=== PATIENT | male | born 1935 | race Caucasian/White ===

== ENCOUNTER 2016-10-07 18:24 | Inpatient (IN) | payer MEDICARE, OTHER ==
[~2016-10-07] VITALS: Ht 172.7 cm; Wt 78.7 kg
--- NOTE | 2016-10-07 18:52 | RAD ---
PROCEDURE CT head without contrast. HISTORY Mental status change while eating dinner. Poor historian. Code stroke. TECHNIQUE Noncontrast CT head was obtained. One or more of the following individualized dose reduction techniques were utilized for this exam: 1. Automated exposure control. 2. Adjustment of the mA and/or kV according to patient's size. 3. Use of iterative reconstruction technique. COMPARISON None. FINDINGS There is prominence of the ventricles and sulci, symmetric. There is minimal probable small-vessel ischemic disease. There is no acute intracranial hemorrhage or extra-axial fluid collection. There is no mass effect or midline shift. Jacob-white differentiation is preserved. There is no depressed skull fracture. Paranasal sinuses and mastoid air cells are clear. This critical result was called to Dr. Veloz at 1850 hours. IMPRESSION 1. No evidence of an acute infarct. 2. Brain parenchymal volume loss and minimal probable small-vessel ischemic disease. Electronically signed by: Fer Win MD (Oct 07, 2016 18:51:24)
[2016-10-07 19:46] LABS: BILIRUBIN,URINE NEGATIVE (NEG); GLUCOSE,URINE NEGATIVE (NEG); NITRITE,URINE NEGATIVE (NEG); PROTEIN,URINE NEGATIVE (NEG-TRACE)
[2016-10-07 19:47] LABS: BASO % 0 % (0-3); EOS % 2 % (0-3); HEMATOCRIT 38.8 % (39.0-53.0); HEMOGLOBIN 12.6 g/dL (13.0-17.5); LYMPH # 1.4 x10^3/uL (1.0-4.8); LYMPH % 13 % (24-48); MEAN CORPUSCULAR HEMOGLOBIN 33 pg (25-35); MEAN CORPUSCULAR HGB CONC 33 g/dL (31-37); MEAN CORPUSCULAR VOLUME 102 fL (79-100); MONO % 13 % (0-9); NEUT % 72 % (31-73); PLATELET COUNT 204 x10^3/uL (140-400); RED BLOOD COUNT 3.81 x10^6/uL (4.30-5.70); RED CELL DISTRIBUTION WIDTH 13.7 % (11.5-14.5); WHITE BLOOD COUNT 10.3 x10^3/uL (4.0-11.0)
[2016-10-07 19:51] LABS: BACTERIA,URINE 0 /HPF (0-FEW); RBC,URINE 0 /HPF (0-2); SQUAMOUS EPITHELIAL CELL,UR FEW /LPF
[2016-10-07 19:54] LABS: INR 1.1 (0.8-1.1); PROTHROMBIN TIME PATIENT 13.1 SEC (11.7-14.0)
--- NOTE | 2016-10-07 19:55 | PHYS DOC ---
Past Medical History Past Medical History: CHF, COPD, Dementia, Hypertension Past Surgical History: No Surgical History Alcohol Use: None Drug Use: None Adult General Chief Complaint Chief Complaint: NEURO SYMPTOMS/DEFICITS [facility] HPI Patient is a 80 year old male who presents by EMS for altered mental status. Per RN phone report from [place], it was noted when he was at dinner that he had slurred speech and could not sit up on his own. This is abnormal for him. Unknown last normal time. The patient only complains of general body tingling sensation. He otherwise denies headache, vision changes, dizziness, numbness, weakness, chest pain, palpitations, dyspnea, abdominal pain, nausea or vomiting , fever or chills, fall, injury, neck pain or manipulation. Review of Systems Review of Systems Constitutional: Denies fever or chills [] Eyes: Denies change in visual acuity, redness, or eye pain [] HENT: Denies nasal congestion or sore throat [] Respiratory: Denies cough or shortness of breath [] Cardiovascular: No additional information not addressed in HPI [] GI: Denies abdominal pain, nausea, vomiting, bloody stools or diarrhea [] : Denies dysuria or hematuria [] Musculoskeletal: Denies back pain or joint pain [] Integument: Denies rash or skin lesions [] Neurologic: Denies headache, focal weakness or sensory changes [] Endocrine: Denies polyuria or polydipsia [] Allergies Allergies Allergies Coded Allergies Type Severity Reaction Last Updated Verified Penicillins Allergy Intermediate 10/07/16 Yes Physical Exam Physical Exam Constitutional: Well developed, well nourished, no acute distress, non-toxic appearance. [] HENT: Normocephalic, atraumatic, bilateral external ears normal, oropharynx moist, no oral exudates, nose normal. [] Eyes: PERRLA, EOMI, conjunctiva normal, no discharge. [] Neck: Normal range of motion, no tenderness, supple, no stridor. [] Cardiovascular:Heart rate regular rhythm [] Lungs & Thorax: Bilateral breath sounds clear to auscultation [] Abdomen: Bowel sounds normal, soft, no tenderness. [] Skin: Warm, dry, no erythema, no rash. [] Back: No tenderness, no CVA tenderness. [] Extremities: No tenderness, ROM intact, bilateral 1+ LE edema. [] Neurologic: Alert and oriented to self and situation, normal motor function, normal sensory function, no focal deficits noted, cranial nerves II through XII intact, no extremity drift, no past pointing. [] Psychologic: Affect normal, judgement normal, mood normal. [] Current Patient Data Vital Signs Vital Signs Date Time Temp Pulse Resp B/P Pulse Ox O2 Delivery O2 Flow Rate FiO2 10/07/16 19:26 98.6 82 18 130/59 92 Room Air 98.6 Lab Values Laboratory Tests Test 10/07/16 19:38 White Blood Count 10.3x10^3/uL (4.0-11.0) Red Blood Count 3.81x10^6/uL (4.30-5.70) L Hemoglobin 12.6g/dL (13.0-17.5) L Hematocrit 38.8% (39.0-53.0) L Mean Corpuscular Volume 102fL (79-100) H Mean Corpuscular Hemoglobin 33pg (25-35) Mean Corpuscular Hemoglobin Concent 33g/dL (31-37) Red Cell Distribution Width 13.7% (11.5-14.5) Platelet Count 204x10^3/uL (140-400) Neutrophils (%) (Auto) 72% (31-73) Lymphocytes (%) (Auto) 13% (24-48) L Monocytes (%) (Auto) 13% (0-9) H Eosinophils (%) (Auto) 2% (0-3) Basophils (%) (Auto) 0% (0-3) Neutrophils # (Auto) 7.5x10^3uL (1.8-7.7) Lymphocytes # (Auto) 1.4x10^3/uL (1.0-4.8) Monocytes # (Auto) 1.3x10^3/uL (0.0-1.1) H Eosinophils # (Auto) 0.2x10^3/uL (0.0-0.7) Basophils # (Auto) 0.0x10^3/uL (0.0-0.2) Prothrombin Time 13.1SEC (11.7-14.0) Prothrombin Time INR 1.1 (0.8-1.1) PTT 24SEC (24-38) Urine Collection Type Unknown Urine Color Yellow Urine Clarity Clear Urine pH 5.0 Urine Specific [place] 1.015 Urine Protein Negativemg/dL (NEG-TRACE) Urine Glucose (UA) Negativemg/dL (NEG) Urine Ketones (Stick) Negativemg/dL (NEG) Urine Blood Negative (NEG) Urine Nitrite Negative (NEG) Urine Bilirubin Negative (NEG) Urine Urobilinogen Dipstick 1.0mg/dL (0.2 mg/dL) Urine Leukocyte Esterase Trace (NEG) Urine RBC 0/HPF (0-2) Urine WBC 1-4/HPF (0-4) Urine Squamous Epithelial Cells Few/LPF Urine Bacteria 0/HPF (0-FEW) Urine Mucus Mod/LPF Sodium Level 147mmol/L (136-145) H Potassium Level 4.4mmol/L (3.5-5.1) Chloride Level 105mmol/L (98-107) Carbon Dioxide Level 36mmol/L (21-32) H Anion Gap 6 (6-14) Blood Urea Nitrogen 16mg/dL (8-26) Creatinine 1.0mg/dL (0.7-1.3) Estimated GFR (Cockcroft-Gault) 71.9 Glucose Level 100mg/dL (70-99) H Calcium Level 9.3mg/dL (8.5-10.1) Creatine Kinase 384U/L (39-308) H Troponin I Quantitative 0.082ng/mL (0.000-0.055) Laboratory Tests 10/07/16 19:38 Laboratory Tests 10/07/16 19:38 EKG EKG EKG as interpreted by me as sinus rhythm with right bundle branch block, rate 65 , no ST-T changes, normal intervals, no ectopy Radiology/Procedures Radiology/Procedures Chest xray as interpreted by me with no acute cardiopulmonary disease process Head CT without contrast IMPRESSION 1. No evidence of an acute infarct. 2. Brain parenchymal volume loss and minimal probable small-vessel ischemic disease. Electronically signed by: Fer Win MD (Oct 07, 2016 18:51:24) Course & Med Decision Making Course & Med Decision Making Pertinent Labs and Imaging studies reviewed. (See chart for details) Workup reveals small elevation in troponin, but is otherwise nonacute. He has no objective signs of neurologic deficit at this time; history is suspicious for TIA. He is not a candidate for thrombolysis as his weakness and slurred speech have resolved upon presentation here. Discussed case with Dr. Castle, who will admit. Cardiology and Neurology consults placed. Damari Disclaimer Dragon Disclaimer This electronic medical record was generated, in whole or in part, using a voice recognition dictation system. Departure Departure Impression: Primary Impression: Altered mental status Additional Impression: Elevated troponin Disposition: ADMITTED INPATIENT Condition: STABLE Referrals: HOMA BEVERLY MD (PCP) Problem Qualifiers Primary Impression: Altered mental status Altered mental status type: transient alteration of awareness Qualified Code : R40.4 - Transient alteration of awareness Kathleen OMALLEY MD Oct 07, 2016 19:55
[2016-10-07 19:59] LABS: CALCIUM 9.3 mg/dL (8.5-10.1); GFR 71.9; POTASSIUM 4.4 mmol/L (3.5-5.1)
[2016-10-07] MEDS ORDERED: ACETAMINOPHEN 325 MG TABLET. PO PRN ×2 (20:30→21:00)
[2016-10-07] MEDS ORDERED: ONDANSETRON PF 4 MG/2 ML VIAL. IV PRN ×2 (20:30→21:00)
[2016-10-07] MEDS ORDERED: FENTANYL PF 100 MCG/2 ML VIAL. IV PRN (20:30)
--- NOTE | 2016-10-07 21:05 | PDOC1 ---
History and Physical Date of Admission Date of Admission 10/07/16 Identification/Chief Complaint Chief Complaint ams Problems: Source Source: Chart review, Patient History of Present Illness History of Present Illness HPI HPI Patient is a 80 year old male, dementia, [facility], who presents by EMS for altered mental status. Pt is a very poor historian, closing his eyes when i talked to him in ER, answer my questions by only "feels good", cannot tell me where he is or what happened. As per ERP, Per RN phone report from [place], it was noted when he was at dinner that he had slurred speech and could not sit up on his own. This is abnormal for him. Unknown last normal time. The patient only complains of general body tingling sensation. He otherwise denies headache, vision changes, dizziness, numbness, weakness, chest pain, palpitations, dyspnea, abdominal pain, nausea or vomiting, fever or chills, fall, injury, neck pain or manipulation. IN ER, Was found high troponin. dont know pt's baseline. Past Medical History Past Medical History CHF, COPD, Dementia, Hypertension Past Surgical History Past Surgical History: No pertinent history Family History Family History: No Significant Social History Smoke: No ALCOHOL: none Drugs: None Current Problem List Problem List Problems Medical Problems: (1) Altered mental status Status: Acute (2) Elevated troponin Status: Acute Current Medications Current Medications Current Medications Medications (Trade) Dose Ordered Sig/Yanet Start Time Stop Time Status Last Admin Dose Admin Acetaminophen (Tylenol) 650 mg PRN Q4HRS PRN 10/07/16 20:30 10/08/16 20:29 Fentanyl Citrate (Fentanyl 2ml Vial) 25 mcg PRN Q2HR PRN 10/07/16 20:30 10/08/16 20:29 Ondansetron HCl (Zofran) 4 mg PRN Q8HRS PRN 10/07/16 20:30 10/08/16 20:29 Allergies Allergies Allergies Coded Allergies Type Severity Reaction Last Updated Verified Penicillins Allergy Intermediate 10/07/16 Yes ROS Review of System CONSTITUTIONAL: No fever or chills EYES: No recent changes SKIN: No rash or itching CARDIOVASCULAR: No chest pain, syncope, palpitations, or edema RESPIRATORY: No SOB or cough GASTROINTESTINAL: No nausea, vomiting or abdominal pain NEUROLOGICAL: No headaches or weakness ENDOCRINE: No cold or heat intolerance GENITOURINARY: No urgency or frequency of urination MUSCULOSKELETAL: No back pain or joint pain LYMPHATICS: No enlarged lymph nodes PSYCHIATRIC: No anxiety or depression Physical Exam Physical Exam GEN.: No apparent distress. Alert and orientedx1 to person only, looks comfortable, follow my commands by squeezing my hands. HEENT: Head is normocephalic, atraumatic NECK: Supple. LUNGS: Clear to auscultation. HEART: RRR, S1, S2 present. Peripheral pulses intact ABDOMEN: Soft, nontender. Positive bowel sounds. EXTREMITIES: Without any cyanosis. NEUROLOGIC: Normal speech, normal tone PSYCHIATRIC: Normal affect, normal mood. SKIN: No ulcerations Vitals Vitals Vital Signs Date Time Temp Pulse Resp B/P Pulse Ox O2 Delivery O2 Flow Rate FiO2 10/07/16 19:26 98.6 82 18 130/59 92 Room Air 98.6 Labs Labs Laboratory Tests Test 10/07/16 19:38 White Blood Count 10.3x10^3/uL (4.0-11.0) Red Blood Count 3.81x10^6/uL (4.30-5.70) Hemoglobin 12.6g/dL (13.0-17.5) Hematocrit 38.8% (39.0-53.0) Mean Corpuscular Volume 102fL (79-100) Mean Corpuscular Hemoglobin 33pg (25-35) Mean Corpuscular Hemoglobin Concent 33g/dL (31-37) Red Cell Distribution Width 13.7% (11.5-14.5) Platelet Count 204x10^3/uL (140-400) Neutrophils (%) (Auto) 72% (31-73) Lymphocytes (%) (Auto) 13% (24-48) Monocytes (%) (Auto) 13% (0-9) Eosinophils (%) (Auto) 2% (0-3) Basophils (%) (Auto) 0% (0-3) Neutrophils # (Auto) 7.5x10^3uL (1.8-7.7) Lymphocytes # (Auto) 1.4x10^3/uL (1.0-4.8) Monocytes # (Auto) 1.3x10^3/uL (0.0-1.1) Eosinophils # (Auto) 0.2x10^3/uL (0.0-0.7) Basophils # (Auto) 0.0x10^3/uL (0.0-0.2) Prothrombin Time 13.1SEC (11.7-14.0) Prothromb Time International Ratio 1.1 (0.8-1.1) Activated Partial Thromboplast Time 24SEC (24-38) Urine Collection Type Unknown Urine Color Yellow Urine Clarity Clear Urine pH 5.0 Urine Specific [place] 1.015 Urine Protein Negativemg/dL (NEG-TRACE) Urine Glucose (UA) Negativemg/dL (NEG) Urine Ketones (Stick) Negativemg/dL (NEG) Urine Blood Negative (NEG) Urine Nitrite Negative (NEG) Urine Bilirubin Negative (NEG) Urine Urobilinogen Dipstick 1.0mg/dL (0.2 mg/dL) Urine Leukocyte Esterase Trace (NEG) Urine RBC 0/HPF (0-2) Urine WBC 1-4/HPF (0-4) Urine Squamous Epithelial Cells Few/LPF Urine Bacteria 0/HPF (0-FEW) Urine Mucus Mod/LPF Sodium Level 147mmol/L (136-145) Potassium Level 4.4mmol/L (3.5-5.1) Chloride Level 105mmol/L (98-107) Carbon Dioxide Level 36mmol/L (21-32) Anion Gap 6 (6-14) Blood Urea Nitrogen 16mg/dL (8-26) Creatinine 1.0mg/dL (0.7-1.3) Estimated GFR (Cockcroft-Gault) 71.9 Glucose Level 100mg/dL (70-99) Calcium Level 9.3mg/dL (8.5-10.1) Creatine Kinase 384U/L (39-308) Troponin I Quantitative 0.082ng/mL (0.000-0.055) Laboratory Tests Test 10/07/16 19:38 White Blood Count 10.3x10^3/uL (4.0-11.0) Red Blood Count 3.81x10^6/uL (4.30-5.70) Hemoglobin 12.6g/dL (13.0-17.5) Hematocrit 38.8% (39.0-53.0) Mean Corpuscular Volume 102fL (79-100) Mean Corpuscular Hemoglobin 33pg (25-35) Mean Corpuscular Hemoglobin Concent 33g/dL (31-37) Red Cell Distribution Width 13.7% (11.5-14.5) Platelet Count 204x10^3/uL (140-400) Neutrophils (%) (Auto) 72% (31-73) Lymphocytes (%) (Auto) 13% (24-48) Monocytes (%) (Auto) 13% (0-9) Eosinophils (%) (Auto) 2% (0-3) Basophils (%) (Auto) 0% (0-3) Neutrophils # (Auto) 7.5x10^3uL (1.8-7.7) Lymphocytes # (Auto) 1.4x10^3/uL (1.0-4.8) Monocytes # (Auto) 1.3x10^3/uL (0.0-1.1) Eosinophils # (Auto) 0.2x10^3/uL (0.0-0.7) Basophils # (Auto) 0.0x10^3/uL (0.0-0.2) Prothrombin Time 13.1SEC (11.7-14.0) Prothromb Time International Ratio 1.1 (0.8-1.1) Activated Partial Thromboplast Time 24SEC (24-38) Urine Collection Type Unknown Urine Color Yellow Urine Clarity Clear Urine pH 5.0 Urine Specific [place] 1.015 Urine Protein Negativemg/dL (NEG-TRACE) Urine Glucose (UA) Negativemg/dL (NEG) Urine Ketones (Stick) Negativemg/dL (NEG) Urine Blood Negative (NEG) Urine Nitrite Negative (NEG) Urine Bilirubin Negative (NEG) Urine Urobilinogen Dipstick 1.0mg/dL (0.2 mg/dL) Urine Leukocyte Esterase Trace (NEG) Urine RBC 0/HPF (0-2) Urine WBC 1-4/HPF (0-4) Urine Squamous Epithelial Cells Few/LPF Urine Bacteria 0/HPF (0-FEW) Urine Mucus Mod/LPF Sodium Level 147mmol/L (136-145) Potassium Level 4.4mmol/L (3.5-5.1) Chloride Level 105mmol/L (98-107) Carbon Dioxide Level 36mmol/L (21-32) Anion Gap 6 (6-14) Blood Urea Nitrogen 16mg/dL (8-26) Creatinine 1.0mg/dL (0.7-1.3) Estimated GFR (Cockcroft-Gault) 71.9 Glucose Level 100mg/dL (70-99) Calcium Level 9.3mg/dL (8.5-10.1) Creatine Kinase 384U/L (39-308) Troponin I Quantitative 0.082ng/mL (0.000-0.055) VTE Prophylaxis Ordered VTE Prophylaxis Devices: Yes VTE Pharmacological Prophylaxi: Yes Assessment/Plan Assessment/Plan 1. AMS, could 2/2 dementia flucuation 2. high troponin, not clear etiology , need to rule out NSTEMI 3. H/O chf, NO DEtails 4. copd, stable 5. dementia, severe likely 6. htn plan: 1. card, neuro consult 2. check tsh, vitb12, CYCLE CE lovenox 90mg sc x1 for now slightly high CK, add ckmb 3. need home meds PTOT Brain MRI SERAFIN LEARY MD Oct 07, 2016 21:05
[2016-10-07] MEDS ORDERED: ENOXAPARIN ** NOTE DOSE ** SYRINGE SQ ONE (21:30)
[2016-10-07 21:39] LABS: CKMB INDEX 0.9 % (0-4); CKMB MASS 3.3 ng/mL (0.0-3.6)
[2016-10-07 22:49] VITALS: BP 143/64
[2016-10-07] MEDS ORDERED: INFLUENZA VAX SCREEN BY RX. MC PRN (23:00)
[2016-10-07] MEDS ORDERED: PNEUMOCOCCAL VAX SCREEN BY RX. MC PRN (23:00)
[2016-10-08] MEDS ORDERED: BUDE10.2 IH
[2016-10-08] MEDS ORDERED: HYDR28OI2 TOP
[2016-10-08] MEDS ORDERED: TIOT18CA IH
[2016-10-08] MEDS ORDERED: DONE10TA7 PO
[2016-10-08] MEDS ORDERED: MULT-496 PO
[2016-10-08] MEDS ORDERED: TRAZ50TA15 PO
[2016-10-08] MEDS ORDERED: FLUT9.9S NS
[2016-10-08] MEDS ORDERED: CHOL10007 PO
[2016-10-08] MEDS ORDERED: POTA20TA82 PO
[2016-10-08] MEDS ORDERED: MAGN400O4 PO
[2016-10-08] MEDS ORDERED: METO25TA4 PO
[2016-10-08] MEDS ORDERED: HYDR25SU3 TOP
[2016-10-08] MEDS ORDERED: FURO40TA4 PO
[2016-10-08] MEDS ORDERED: LOPE2CAP88 PO
[2016-10-08] MEDS ORDERED: ALBU1.25 NEB
[2016-10-08] MEDS ORDERED: TRIA5PAS4 DT
[2016-10-08] MEDS ORDERED: VENTOLIN HFA18 GM INH
[2016-10-08] MEDS ORDERED: PROP10DR4 OP
[2016-10-08] MEDS ORDERED: GUAI400T27 PO
--- NOTE | 2016-10-08 00:39 | ACF ---
Admission Forms Criteria MENTAL STATUS CHANGE Clinical Indications for Inpatient Care (Place 'X' for any and all applicable criteria): Ongoing inpatient care may be needed for ANY ONE of the following(1)(2)(3)(5)(6) : [ X]I. Suspected serious etiology (eg, medical disorder, PLANNER event) of mental status change [ ]II. Danger to self or others not manageable at lower level of care [ ]III. Grave disability (eg, inability to perform self care necessary at lower level of care) [ ]IV. Agitation or inappropriate behavior interfering with care for primary condition (eg, attempting to discontinue lines or drains prematurely, unable to cooperate with respiratory care) [ ]V. Delirium [A] [D][E] as described by ANY ONE of the following(26): [ ]a) Delirium due to alcohol or sedative [F] withdrawal [ ]b) Delirium of uncertain etiology that has not responded to appropriate empiric treatment [ ]c) Delirium that prevents performance of a life-sustaining function (eg, feeding or hydrating oneself) [X ]. General contraindications and/or Inappropriate clinical situations for Observational Care in patients with Mental Status Change, when ANY ONE of the following is required: [ X]a) Prediction of prolongation of LOS based on ANY ONE of the following may be considered as a contraindication for observational care 2, 3, 4, 5, 6, 7, 8, 9, 10, 11 [X ]i) Age > 65 yrs. [ X]ii) Patient arriving by ambulance [ ]iii) Patient with high acuity [ ]iv) Patient requiring vital sign monitoring [ ]v) Patient on IV medication [ ]b) Systolic blood pressures 180mmHg 3,12 [ ]c) Patient with altered mental status including delirium and other alteration of consciousness, (3) [ ]d) Patient whose discharge disposition will be to a shelter home or rehabilitation home should not be managed in Emergency Department Observation Unit. CMS rule requires 3 days hospital stay before such placement.3,13 [ ]e) Patient with failure to thrive due to broad array of etiologies 3,16,17 [ ]f) Inability to ambulate 3,14 Extended stay beyond goal length of stay for the primary condition may be needed until ALL of the following are present(3)(5): [ ]a) Underlying medical etiology of mental status change is absent, or has been established and adequately treated [ ]b) Danger to self or others is absent or manageable at lower level of care. [ ]c) Behavior crisis management, including physical or chemical restraints, is not required or available at lower level of car [ ]d) Substance or alcohol withdrawal is absent or manageable at lower level of care. [ ]e) Behavioral symptoms (eg, agitation, somnolence, inappropriate behavior) are absent, or are manageable at lower level of care. The original [facility] content created by [facility] has been revised. The portions of the content which have been revised are identified through the use of italic text or in bold, and [facility] has neither reviewed nor approved the modified material. All other unmodified content is copyright [facility]. Please see references footnoted in the original [facility] edition 2016 Admission Criteria Met?: Yes JASON AGUILAR Oct 08, 2016 00:38
[2016-10-08 02:13] LABS: BASO % 0 % (0-3); EOS % 2 % (0-3); HEMATOCRIT 38.1 % (39.0-53.0); HEMOGLOBIN 12.4 g/dL (13.0-17.5); LYMPH # 1.5 x10^3/uL (1.0-4.8); LYMPH % 17 % (24-48); MEAN CORPUSCULAR HEMOGLOBIN 33 pg (25-35); MEAN CORPUSCULAR HGB CONC 33 g/dL (31-37); MEAN CORPUSCULAR VOLUME 102 fL (79-100); MONO % 10 % (0-9); NEUT % 70 % (31-73); PLATELET COUNT 169 x10^3/uL (140-400); RED BLOOD COUNT 3.75 x10^6/uL (4.30-5.70); RED CELL DISTRIBUTION WIDTH 13.7 % (11.5-14.5); WHITE BLOOD COUNT 8.8 x10^3/uL (4.0-11.0)
[2016-10-08 02:15] LABS: CALCIUM 9.2 mg/dL (8.5-10.1); CREATININE 0.9 mg/dL (0.7-1.3); GFR 81.2; POTASSIUM 3.9 mmol/L (3.5-5.1)
[2016-10-08 03:30] VITALS: BP 135/66
--- NOTE | 2016-10-08 06:52 | EKG ---
[facility] [address] [place] [address] Test Date: 2016-10-07 Test Time: 18:52:13 Pat Name: JESUS QIU Department: Room: [facility] Gender: M Transportation Specialist: : [id number] Requested By: Kathleen OMALLEY Order Number: [id number] Reading MD: Mariano Ragland Measurements Intervals [place] Rate: 65 P: 90 [place]: 194 QRS: -16 QRSD: 120 T: 36 QT: 426 QTc: 448 Interpretive Statements SINUS RHYTHM R-S TRANSITION ZONE IN V LEADS DISPLACED TO THE RIGHT LOW LIMB LEAD VOLTAGE INCOMPLETE RIGHT BUNDLE BRANCH BLOCK Electronically Signed On 10-21-2016 15:28:27 CDT by Mariano Ragland
[2016-10-08 07:00] VITALS: BP 140/60
[2016-10-08 08:00] VITALS: BP 140/60
--- NOTE | 2016-10-08 08:58 | RAD ---
Portable chest, 10/07/2016: History: Altered mental status The heart size is normal. There is mild calcific plaquing of the aorta. There appear to be a few scattered parenchymal scars. No pulmonary consolidation is seen. There is no evidence of pleural fluid. The bony structures are demineralized. IMPRESSION: No acute cardiopulmonary abnormality is detected.
--- NOTE | 2016-10-08 10:56 | PDOC2 ---
CARDIAC CONSULT DATE OF CONSULT Date of Consult DATE: 10/08/16 TIME: 10:39 REASON FOR CONSULT Reason for Consult: elevated troponin REFERRING PHYSICIAN Referring Physician: Dr. Wilfrido Veloz SOURCE Source: Chart review, Patient (who is unable to provide any significant information ) HISTORY OF PRESENT ILLNESS HISTORY OF PRESENT ILLNESS 80 year old admitted through the ER from his nursing facility for reported altered mental status. Patient with dementia and no recall of events. Knows he was born in 1936 and is in the hospital, but not which hospital. Currently denies chest pain and dementia. EKG SR without acute changes and troponin levels peaked at 0.082 on the initial level and are now trending downward. Reason for Visit: elevated troponin PAST MEDICAL HISTORY Past Medical History obtained from existing chart Cardiovascular: CHF, HTN Pulmonary: COPD CENTRAL NERVOUS SYSTEM: Dementia PAST SURGICAL HISTORY Past Surgical History unknown FAMILY HISTORY Family History: Family History Unknown SOCIAL HISTORY Lives[facility] CURRENT MEDICATIONS CURRENT MEDICATIONS Current Medications Medications (Trade) Dose Ordered Sig/Yanet Route PRN Reason Start Time Stop Time Status Last Admin Dose Admin Enoxaparin Sodium (Lovenox 100mg Syringe) 90 mg 1X ONCE SQ 10/07/16 21:30 10/07/16 21:31 DC 10/07/16 23:16 ALLERGIES ALLERGIES: Coded Allergies: Penicillins (Verified Allergy, Intermediate, 10/07/16) ROS Review of System unobtainable due to dementia PHYSICAL EXAM General: Alert, Cooperative, No acute distress HEENT: Atraumatic, PERRLA Lungs: Clear to auscultation, Normal air movement Heart: Regular rate, Normal S1, Normal S2, No murmurs, Other (no carotid bruits ) Abdomen: Normal bowel sounds, Soft Extremities: No edema, Normal pulses Skin: No rashes Neuro: Normal speech Psych/Mental Status: Mood NL (pleasant and cooperative) MUSCULOSKELETAL: Osteoarthritic changes both hands VITALS VITALS Vital Signs Date Time Temp Pulse Resp B/P Pulse Ox O2 Delivery O2 Flow Rate FiO2 10/08/16 08:00 98.0 77 140/60 95 Nasal Cannula 2.0 98.0 10/08/16 07:00 18 LABS Lab: Laboratory Tests Test 10/07/16 19:38 10/08/16 01:50 10/08/16 08:00 White Blood Count 10.3x10^3/uL (4.0-11.0) 8.8x10^3/uL (4.0-11.0) Red Blood Count 3.81x10^6/uL (4.30-5.70) 3.75x10^6/uL (4.30-5.70) Hemoglobin 12.6g/dL (13.0-17.5) 12.4g/dL (13.0-17.5) Hematocrit 38.8% (39.0-53.0) 38.1% (39.0-53.0) Mean Corpuscular Volume 102fL (79-100) 102fL (79-100) Mean Corpuscular Hemoglobin 33pg (25-35) 33pg (25-35) Mean Corpuscular Hemoglobin Concent 33g/dL (31-37) 33g/dL (31-37) Red Cell Distribution Width 13.7% (11.5-14.5) 13.7% (11.5-14.5) Platelet Count 204x10^3/uL (140-400) 169x10^3/uL (140-400) Neutrophils (%) (Auto) 72% (31-73) 70% (31-73) Lymphocytes (%) (Auto) 13% (24-48) 17% (24-48) Monocytes (%) (Auto) 13% (0-9) 10% (0-9) Eosinophils (%) (Auto) 2% (0-3) 2% (0-3) Basophils (%) (Auto) 0% (0-3) 0% (0-3) Neutrophils # (Auto) 7.5x10^3uL (1.8-7.7) 6.2x10^3uL (1.8-7.7) Lymphocytes # (Auto) 1.4x10^3/uL (1.0-4.8) 1.5x10^3/uL (1.0-4.8) Monocytes # (Auto) 1.3x10^3/uL (0.0-1.1) 0.9x10^3/uL (0.0-1.1) Eosinophils # (Auto) 0.2x10^3/uL (0.0-0.7) 0.2x10^3/uL (0.0-0.7) Basophils # (Auto) 0.0x10^3/uL (0.0-0.2) 0.0x10^3/uL (0.0-0.2) Prothrombin Time 13.1SEC (11.7-14.0) Prothromb Time International Ratio 1.1 (0.8-1.1) Activated Partial Thromboplast Time 24SEC (24-38) Urine Collection Type Unknown Urine Color Yellow Urine Clarity Clear Urine pH 5.0 Urine Specific [place] 1.015 Urine Protein Negativemg/dL (NEG-TRACE) Urine Glucose (UA) Negativemg/dL (NEG) Urine Ketones (Stick) Negativemg/dL (NEG) Urine Blood Negative (NEG) Urine Nitrite Negative (NEG) Urine Bilirubin Negative (NEG) Urine Urobilinogen Dipstick 1.0mg/dL (0.2 mg/dL) Urine Leukocyte Esterase Trace (NEG) Urine RBC 0/HPF (0-2) Urine WBC 1-4/HPF (0-4) Urine Squamous Epithelial Cells Few/LPF Urine Bacteria 0/HPF (0-FEW) Urine Mucus Mod/LPF Sodium Level 147mmol/L (136-145) 145mmol/L (136-145) Potassium Level 4.4mmol/L (3.5-5.1) 3.9mmol/L (3.5-5.1) Chloride Level 105mmol/L (98-107) 105mmol/L (98-107) Carbon Dioxide Level 36mmol/L (21-32) 34mmol/L (21-32) Anion Gap 6 (6-14) 6 (6-14) Blood Urea Nitrogen 16mg/dL (8-26) 15mg/dL (8-26) Creatinine 1.0mg/dL (0.7-1.3) 0.9mg/dL (0.7-1.3) Estimated GFR (Cockcroft-Gault) 71.9 81.2 Glucose Level 100mg/dL (70-99) 118mg/dL (70-99) Calcium Level 9.3mg/dL (8.5-10.1) 9.2mg/dL (8.5-10.1) Creatine Kinase 365U/L (39-308) Creatine Kinase MB (Mass) 3.3ng/mL (0.0-3.6) Creatine Kinase MB Relative Index 0.9% (0-4) Troponin I Quantitative 0.082ng/mL (0.000-0.055) 0.077ng/mL (0.000-0.055) 0.062ng/mL (0.000-0.055) Thyroid Stimulating Hormone (TSH) 0.924uIU/mL (0.358-3.74) IMAGES IMAGES CXR: The heart size is normal. There is mild calcific plaquing of the aorta. There appear to be a few scattered parenchymal scars. No pulmonary consolidation is seen. There is no evidence of pleural fluid. The bony structures are demineralized. IMPRESSION: No acute cardiopulmonary abnormality is detected. CT head: FINDINGS There is prominence of the ventricles and sulci, symmetric. There is minimal probable small-vessel ischemic disease. There is no acute intracranial hemorrhage or extra-axial fluid collection. There is no mass effect or midline shift. Jacob-white differentiation is preserved. There is no depressed skull fracture. Paranasal sinuses and mastoid air cells are clear. This critical result was called to Dr. Veloz at 1850 hours. IMPRESSION 1. No evidence of an acute infarct. 2. Brain parenchymal volume loss and minimal probable small-vessel ischemic disease. EKG EKG no acute changes ASSESSMENT/PLAN ASSESSMENT/PLAN 1. elevated troponin peaked @ 0.08; no acute changes in EKG BP mildly elevated after presentation - ? demand related pt demented and no recall of symptoms echo to evaluate LVEF and assess WMA without input from family, would not pursue aggressive evaluation without symptoms present 2. CHF by history no evidence of CHF on CXR or on clinical findings 3. HTN, benign essential control with meds 4. altered mental status ? baseline - unknown Problems: HORACIO AHN APRN Oct 08, 2016 10:56
[2016-10-08 10:57] VITALS: BP 126/44
[2016-10-08] MEDS ORDERED: ALBUTEROL SULFATE 2.5 MG/3 ML NEBU. INH PRN (11:30)
[2016-10-08] MEDS ORDERED: HYDROCORTISONE ACETATE 25 MG SUPP.RECT PR PRN (11:30)
[2016-10-08] MEDS ORDERED: LOPERAMIDE 2 MG CAPSULE PO PRN (11:30)
[2016-10-08] MEDS ORDERED: MAGNESIUM HYDROXIDE 2,400 MG/30 ML ORAL.SUSP. PO PRN (11:30)
--- NOTE | 2016-10-08 11:34 | PDOC2 ---
NEUROLOGY CONSULT Date of Admission Date of Admission DATE: 10/08/16 TIME: 11:28 Reason for Consult Reason for Consult: Altered mental status Referring Physician Referring Physician: Dr. Castle Source Source: Chart review, Patient History of Present Illness History of Present Illness The patient is an 80-year-old right-handed male with history of dementia sent over from [facility] for all to mental status. He was less responsive and having some dysarthria. The patient is an unreliable historian but denies history of stroke, seizure, or head injury. Past Medical History Cardiovascular: CHF, HTN, Hyperlipidemia Pulmonary: COPD CENTRAL NERVOUS SYSTEM: Dementia (Alzheimer's) GI: GERD Heme/Onc: Cancer (bladder) Psych: Anxiety, Depression Musculoskeletal: Osteoarthritis Renal/: UTI, Benign prostatic enlarg., Urinary Incontinence Past Surgical History Past Surgical History: No pertinent history Family History Family History: No pertinent hx Social History Social History Denies alcohol or tobacco Current Medications Current Medications Current Medications Ondansetron HCl (Zofran) 4 mg PRN Q8HRS PRN IV NAUSEA/VOMITING; Start 10/07/16 at 20:30; Stop 10/07/16 at 21:02; Status DC Fentanyl Citrate (Fentanyl 2ml Vial) 25 mcg PRN Q2HR PRN IV PAIN; Start at 20:30; Stop 10/08/16 at 20:29 Acetaminophen (Tylenol) 650 mg PRN Q4HRS PRN PO FEVER; Start 10/07/16 at 20:30 ; Stop 10/07/16 at 21:02; Status DC Acetaminophen (Tylenol) 650 mg PRN Q6HRS PRN PO FEVER; Start 10/07/16 at 21:00 Ondansetron HCl (Zofran) 4 mg PRN Q6HRS PRN IV NAUSEA; Start 10/07/16 at 21:00 Enoxaparin Sodium (Lovenox 100mg Syringe) 90 mg 1X ONCE SQ Last administered on 10/07/16t 23:16; Start 10/07/16 at 21:30; Stop 10/07/16 at 21:31; Status DC Info (Do NOT chart on this placeholder) 1 each PRN DAILY PRN [facility] UNABLE TO RESPOND; Start 10/07/16 at 23:00; Status Cancel Pneumococcal Polyvalent Vaccine (Do NOT chart on this placeholder) 1 each PRN DAILY PRN [facility] UNABLE TO RESPOND; Start 10/07/16 at 23:00; Status Cancel Enoxaparin Sodium (Lovenox 40mg Syringe) 40 mg Q24H SQ ; Start 10/08/16 at 11:30 ; Status UNV Donepezil HCl (Aricept) 10 mg HS PO ; Start 10/08/16 at 21:00; Status UNV Furosemide (Lasix) 40 mg DAILY PO ; Start 10/09/16 at 09:00; Status UNV Hydrocortisone Acetate (Anucort-Hc) 25 mg PRN DAILY PRN RI RA; Start 10/08/16 at 11:30; Status UNV Loperamide HCl (Imodium) 2 mg PRN BID PRN PO DIARRHEA; Start 10/08/16 at 11:30 ; Status UNV Magnesium Hydroxide (Milk Of Magnesia) 400 mg PRN DAILY PRN PO CONSTIPATION; Start 10/08/16 at 11:30; Status UNV Metoprolol Tartrate (Lopressor) 25 mg DAILY PO ; Start 10/09/16 at 09:00; Status UNV Trazodone HCl (Desyrel) 50 mg QHS PO ; Start 10/08/16 at 21:00; Status UNV Triamcinolone Acetonide (Kenalog Dental) 5 marisol PRN Q12HR PRN DT RASH; Start at 11:30; Status UNV Non-Formulary Medication 1 vial Q6HRS NEB ; Start 10/08/16 at 12:00; Status UNV Non-Formulary Medication 2 puff PRN Q6HRS PRN INH SHORTNESS OF BREATH; Start at 11:30; Status UNV Non-Formulary Medication 2 puff BID IH ; Start 10/08/16 at 21:00; Status UNV Non-Formulary Medication 1,000 unit BID PO ; Start 10/08/16 at 21:00; Status UNV Non-Formulary Medication 2 sprays DAILY NS ; Start 10/09/16 at 09:00; Status UNV Non-Formulary Medication 400 mg PRN Q12HR PRN PO CONGESTION; Start 10/08/16 at 11:30; Status UNV Non-Formulary Medication 1 % PRN PRN TOP clarence; Start 10/08/16 at 11:30; Status UNV Non-Formulary Medication 1 each HS PO ; Start 10/08/16 at 21:00; Status UNV Non-Formulary Medication 20 meq DAILY PO ; Start 10/09/16 at 09:00; Status UNV Non-Formulary Medication 10 ml BID OP ; Start 10/08/16 at 21:00; Status UNV Non-Formulary Medication 1 cap HS IH ; Start 10/08/16 at 21:00; Status UNV Active Scripts Active Reported Vitamin D3 (Cholecalciferol (Vitamin D3)) 1,000 Unit Capsule 1,000 Unit PO BID Triamcinolone Acetonide 5 Gm Paste..g. 5 Gm DT PRN Q12HR PRN Trazodone Hcl 50 Mg Tablet 1 Tab PO QHS Systane Balance (Propylene Glycol) 10 Ml Drops 10 Ml OP BID Symbicort 160-4.5 Mcg Inhaler (Budesonide/Formoterol Fumarate) 10.2 Gm Hfa.aer.ad 2 Puff IH BID Spiriva (Tiotropium [place]) 18 Mcg Cap.w.dev 1 Cap IH HS Potassium Chloride 20 Meq Tablet.er 20 Meq PO DAILY Daily Value (Multivitamin) 1 Each Tablet 1 Each PO HS Milk Of Magnesia (Magnesium Hydroxide) 400 Mg/5 Ml Oral.susp 400 Mg PO PRN DAILY PRN Metoprolol Tartrate 25 Mg Tablet 1 Tab PO DAILY Imodium A-D (Loperamide HCl) 2 Mg Capsule 2 Mg PO PRN PRN Hydrocortisone (Hydrocortisone Acetate) 28 Gm Oint...g. 1 % TOP PRN PRN Hydrocortisone Acetate 25 Mg Supp.rect 1 % TOP PRN PRN Guaifenesin 400 Mg Tablet 400 Mg PO PRN Q12HR PRN Furosemide 40 Mg Tablet 1 Tab PO DAILY Flonase Allergy Relief (Fluticasone Propionate) 9.9 Ml [place].susp 2 Sprays NS DAILY Donepezil Hcl 10 Mg Tablet 10 Mg PO HS Albuterol Sulfate Neb Soln (Albuterol Sulfate) 1.25 Mg/3 Ml Vial.neb 1 Vial NEB Q6HRS Ventolin Hfa Inhaler (Albuterol Sulfate) 18 Gm Hfa.aer.ad 2 Puff INH PRN Q6HRS PRN Allergies Allergies: Coded Allergies: Penicillins (Verified Allergy, Intermediate, 10/07/16) ROS Review of System Negative for fevers, chills, weight loss, shortness of breath, chest pain, indigestion, hematochezia, melena, dysuria. Full 14-point review systems is negative. Physical Exam Physical Examination PHYSICAL EXAMINATION: Vital signs: see above. General appearance is normal and in no acute distress. HEENT: Normocephalic and nontraumatic. Eyes, nose, ears, and throat are unremarkable. Neck is supple. No lymphadenopathy. No bruits are heard over the carotid artery. No crepitus. NEUROLOGICAL EXAMINATION: Mental Status Examination: Alert. Oriented only to. Answers questions and follows commends. Pupils are equal round and reactive to light and accommodation. Extraocular movements are intact. Visual field exam shows no defect on the direct confrontation. No motor or sensory deficits on the facial exam. Uvula in the midline and the soft palate elevated symmetrically. No deviation of the tongue to any direction. Gross hearing is normal. Shoulder shrug normal. Muscle tone is normal. Muscle strength is 4/5. Deep tendon reflexes are 1+ all around. Plantar reflex is with flexion response bilaterally. Guxlby-ay-syjl test performance is accurate. Alternative movements are accurate. He refuses to let me check his gait. Sensory exam shows no deficits. No cerebellar signs are elicited. Vitals VITALS Vital Signs Date Time Temp Pulse Resp B/P Pulse Ox O2 Delivery O2 Flow Rate FiO2 10/08/16 10:57 97.9 69 16 126/44 97 Nasal Cannula 2.0 97.9 Labs Labs Laboratory Tests Test 10/07/16 19:38 10/08/16 01:50 10/08/16 08:00 White Blood Count 10.3x10^3/uL (4.0-11.0) 8.8x10^3/uL (4.0-11.0) Red Blood Count 3.81x10^6/uL (4.30-5.70) 3.75x10^6/uL (4.30-5.70) Hemoglobin 12.6g/dL (13.0-17.5) 12.4g/dL (13.0-17.5) Hematocrit 38.8% (39.0-53.0) 38.1% (39.0-53.0) Mean Corpuscular Volume 102fL (79-100) 102fL (79-100) Mean Corpuscular Hemoglobin 33pg (25-35) 33pg (25-35) Mean Corpuscular Hemoglobin Concent 33g/dL (31-37) 33g/dL (31-37) Red Cell Distribution Width 13.7% (11.5-14.5) 13.7% (11.5-14.5) Platelet Count 204x10^3/uL (140-400) 169x10^3/uL (140-400) Neutrophils (%) (Auto) 72% (31-73) 70% (31-73) Lymphocytes (%) (Auto) 13% (24-48) 17% (24-48) Monocytes (%) (Auto) 13% (0-9) 10% (0-9) Eosinophils (%) (Auto) 2% (0-3) 2% (0-3) Basophils (%) (Auto) 0% (0-3) 0% (0-3) Neutrophils # (Auto) 7.5x10^3uL (1.8-7.7) 6.2x10^3uL (1.8-7.7) Lymphocytes # (Auto) 1.4x10^3/uL (1.0-4.8) 1.5x10^3/uL (1.0-4.8) Monocytes # (Auto) 1.3x10^3/uL (0.0-1.1) 0.9x10^3/uL (0.0-1.1) Eosinophils # (Auto) 0.2x10^3/uL (0.0-0.7) 0.2x10^3/uL (0.0-0.7) Basophils # (Auto) 0.0x10^3/uL (0.0-0.2) 0.0x10^3/uL (0.0-0.2) Prothrombin Time 13.1SEC (11.7-14.0) Prothromb Time International Ratio 1.1 (0.8-1.1) Activated Partial Thromboplast Time 24SEC (24-38) Urine Collection Type Unknown Urine Color Yellow Urine Clarity Clear Urine pH 5.0 Urine Specific [place] 1.015 Urine Protein Negativemg/dL (NEG-TRACE) Urine Glucose (UA) Negativemg/dL (NEG) Urine Ketones (Stick) Negativemg/dL (NEG) Urine Blood Negative (NEG) Urine Nitrite Negative (NEG) Urine Bilirubin Negative (NEG) Urine Urobilinogen Dipstick 1.0mg/dL (0.2 mg/dL) Urine Leukocyte Esterase Trace (NEG) Urine RBC 0/HPF (0-2) Urine WBC 1-4/HPF (0-4) Urine Squamous Epithelial Cells Few/LPF Urine Bacteria 0/HPF (0-FEW) Urine Mucus Mod/LPF Sodium Level 147mmol/L (136-145) 145mmol/L (136-145) Potassium Level 4.4mmol/L (3.5-5.1) 3.9mmol/L (3.5-5.1) Chloride Level 105mmol/L (98-107) 105mmol/L (98-107) Carbon Dioxide Level 36mmol/L (21-32) 34mmol/L (21-32) Anion Gap 6 (6-14) 6 (6-14) Blood Urea Nitrogen 16mg/dL (8-26) 15mg/dL (8-26) Creatinine 1.0mg/dL (0.7-1.3) 0.9mg/dL (0.7-1.3) Estimated GFR (Cockcroft-Gault) 71.9 81.2 Glucose Level 100mg/dL (70-99) 118mg/dL (70-99) Calcium Level 9.3mg/dL (8.5-10.1) 9.2mg/dL (8.5-10.1) Creatine Kinase 365U/L (39-308) Creatine Kinase MB (Mass) 3.3ng/mL (0.0-3.6) Creatine Kinase MB Relative Index 0.9% (0-4) Troponin I Quantitative 0.082ng/mL (0.000-0.055) 0.077ng/mL (0.000-0.055) 0.062ng/mL (0.000-0.055) Vitamin B12 Level 323pg/mL (247-911) Thyroid Stimulating Hormone (TSH) 0.924uIU/mL (0.358-3.74) Laboratory Tests Test 10/07/16 19:38 10/08/16 01:50 10/08/16 08:00 White Blood Count 10.3x10^3/uL (4.0-11.0) 8.8x10^3/uL (4.0-11.0) Red Blood Count 3.81x10^6/uL (4.30-5.70) 3.75x10^6/uL (4.30-5.70) Hemoglobin 12.6g/dL (13.0-17.5) 12.4g/dL (13.0-17.5) Hematocrit 38.8% (39.0-53.0) 38.1% (39.0-53.0) Mean Corpuscular Volume 102fL (79-100) 102fL (79-100) Mean Corpuscular Hemoglobin 33pg (25-35) 33pg (25-35) Mean Corpuscular Hemoglobin Concent 33g/dL (31-37) 33g/dL (31-37) Red Cell Distribution Width 13.7% (11.5-14.5) 13.7% (11.5-14.5) Platelet Count 204x10^3/uL (140-400) 169x10^3/uL (140-400) Neutrophils (%) (Auto) 72% (31-73) 70% (31-73) Lymphocytes (%) (Auto) 13% (24-48) 17% (24-48) Monocytes (%) (Auto) 13% (0-9) 10% (0-9) Eosinophils (%) (Auto) 2% (0-3) 2% (0-3) Basophils (%) (Auto) 0% (0-3) 0% (0-3) Neutrophils # (Auto) 7.5x10^3uL (1.8-7.7) 6.2x10^3uL (1.8-7.7) Lymphocytes # (Auto) 1.4x10^3/uL (1.0-4.8) 1.5x10^3/uL (1.0-4.8) Monocytes # (Auto) 1.3x10^3/uL (0.0-1.1) 0.9x10^3/uL (0.0-1.1) Eosinophils # (Auto) 0.2x10^3/uL (0.0-0.7) 0.2x10^3/uL (0.0-0.7) Basophils # (Auto) 0.0x10^3/uL (0.0-0.2) 0.0x10^3/uL (0.0-0.2) Prothrombin Time 13.1SEC (11.7-14.0) Prothromb Time International Ratio 1.1 (0.8-1.1) Activated Partial Thromboplast Time 24SEC (24-38) Urine Collection Type Unknown Urine Color Yellow Urine Clarity Clear Urine pH 5.0 Urine Specific [place] 1.015 Urine Protein Negativemg/dL (NEG-TRACE) Urine Glucose (UA) Negativemg/dL (NEG) Urine Ketones (Stick) Negativemg/dL (NEG) Urine Blood Negative (NEG) Urine Nitrite Negative (NEG) Urine Bilirubin Negative (NEG) Urine Urobilinogen Dipstick 1.0mg/dL (0.2 mg/dL) Urine Leukocyte Esterase Trace (NEG) Urine RBC 0/HPF (0-2) Urine WBC 1-4/HPF (0-4) Urine Squamous Epithelial Cells Few/LPF Urine Bacteria 0/HPF (0-FEW) Urine Mucus Mod/LPF Sodium Level 147mmol/L (136-145) 145mmol/L (136-145) Potassium Level 4.4mmol/L (3.5-5.1) 3.9mmol/L (3.5-5.1) Chloride Level 105mmol/L (98-107) 105mmol/L (98-107) Carbon Dioxide Level 36mmol/L (21-32) 34mmol/L (21-32) Anion Gap 6 (6-14) 6 (6-14) Blood Urea Nitrogen 16mg/dL (8-26) 15mg/dL (8-26) Creatinine 1.0mg/dL (0.7-1.3) 0.9mg/dL (0.7-1.3) Estimated GFR (Cockcroft-Gault) 71.9 81.2 Glucose Level 100mg/dL (70-99) 118mg/dL (70-99) Calcium Level 9.3mg/dL (8.5-10.1) 9.2mg/dL (8.5-10.1) Creatine Kinase 365U/L (39-308) Creatine Kinase MB (Mass) 3.3ng/mL (0.0-3.6) Creatine Kinase MB Relative Index 0.9% (0-4) Troponin I Quantitative 0.082ng/mL (0.000-0.055) 0.077ng/mL (0.000-0.055) 0.062ng/mL (0.000-0.055) Vitamin B12 Level 323pg/mL (247-911) Thyroid Stimulating Hormone (TSH) 0.924uIU/mL (0.358-3.74) Images Images Head CT: 1. No evidence of an acute infarct. 2. Brain parenchymal volume loss and minimal probable small-vessel ischemic disease. Assessment/Plan Assessment/Plan Impression: Alzheimer's dementia Confusion episode, dysarthria, probably related to dementia, possibly a transient ischemic attack but less likely Recommendations: Await brain MRI Hold off on additional studies such as EEG Continue present medications Return to half-way as soon as today if workup negative Thank you for letting me up at the patient's care. MARÍA GALDAMEZ MD Oct 08, 2016 11:34
[2016-10-08] MEDS ORDERED: TRIAMCINOLONE ACETONIDE 0.1% TOPICAL CREAM 15GM TUBE. TP PRN (11:45)
[2016-10-08] MEDS ORDERED: GUAIFENESIN 200 MG/10 ML LIQUID. PO PRN (12:00)
[2016-10-08] MEDS ORDERED: NON FORMULARY ITEM (Albuterol Sulfate (Albuterol Sulfate Neb Soln) 1 VIAL) NEB SCH (12:00)
[2016-10-08] MEDS ORDERED: HYDROCORTISONE 1% TOPICAL CREAM 30GM TUBE. TP PRN ×2 (12:00→13:14)
[2016-10-08] MEDS: POTASSIUM CHLORIDE 20 MEQ TABLET.ER. PO SCH (12:35)
[2016-10-08] MEDS: METOPROLOL TART IMMED RELEASE 25 MG TABLET PO SCH (12:35)
[2016-10-08] MEDS: FUROSEMIDE 40 MG TABLET PO SCH (12:35)
[2016-10-08] MEDS: ENOXAPARIN 40 MG/0.4 ML SYRINGE. SQ SCH (12:35)
[2016-10-08] MEDS: CHOLECALCIFEROL (VITAMIN D3) 1,000 UNIT TABLET PO SCH ×2 (12:35→21:38)
--- NOTE | 2016-10-08 12:56 | RAD ---
PROCEDURE MRI of the brain without contrast 10/08/2016 HISTORY Confusion. TECHNIQUE Unenhanced T1 weighted sagittal and axial, T2 weighted axial and coronal and FLAIR, gradient echo and diffusion weighted axial images of the brain were obtained. FINDINGS Comparison is made to the patient's CT scan of the head dated 10/07/2016. There is generalized parenchymal atrophy. Patchy and multiple focal areas of abnormally increased signal intensity are seen within the periventricular and subcortical white matter of both cerebral hemispheres on the FLAIR and T2 weighted images consistent with areas of small vessel ischemic disease. A small area of increased signal intensity is seen involving the left occipital lobe on the diffusion weighted images. This measures 8 millimeters in greatest diameter. This appears to demonstrate some degree of decreased signal intensity on the ADC images and is felt to most likely represent an area of acute ischemia/infarction. There is no significant surrounding edema or associated mass effect. No additional acute parenchymal abnormality is seen. No extra-axial fluid collection is noted. Mild mucosal thickening is seen scattered throughout the paranasal sinuses. Normal flow voids are seen within the major vascular structures surrounding the brain parenchyma. There are minimal bilateral mastoid effusions. IMPRESSION There appears to be a small area of acute ischemia/infarction involving the left occipital lobe as outlined above. There is no significant surrounding edema or associated mass effect. The patient's nurse was notified of this finding. Electronically signed by: Huy Crystal MD (Oct 08, 2016 12:54:44)
--- NOTE | 2016-10-08 13:18 | PDOC ---
PROGRESS NOTES Chief Complaint Chief Complaint 1. AMS, 2/2 acute left occipital stroke 2. high troponin, not clear etiology , need to rule out NSTEMI 3. H/O chf, NO DEtails 4. copd, stable 5. 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 htn plan: 1. card, neuro consulted 2. check tsh, vitb12, CYCLE CE lovenox 90mg sc x1 slightly high CK, add ckmb, neg 3. cont home meds PTOT Brain MRI + for stroke add Echo, carotid US. add asa, check lipid panel History of Present Illness History of Present Illness pt looks better today, talking, moving bl exts likely his baseline ,very demented tho, aaox1 to person, knows in hosp cannot tell the name or year Vitals Vitals Vital Signs Date Time Temp Pulse Resp B/P Pulse Ox O2 Delivery O2 Flow Rate FiO2 10/08/16 12:35 69 126/44 10/08/16 10:57 97.9 16 97 Nasal Cannula 2.0 97.9 Physical Exam General: Alert, Cooperative, No acute distress Heart: Regular rate, Normal S1, Normal S2, No murmurs, Other (no carotid bruits ) Abdomen: Normal bowel sounds, Soft Extremities: No edema, Normal pulses Skin: No rashes Labs LABS Laboratory Tests Test 10/07/16 19:38 10/08/16 01:50 10/08/16 08:00 White Blood Count 10.3x10^3/uL (4.0-11.0) 8.8x10^3/uL (4.0-11.0) Red Blood Count 3.81x10^6/uL (4.30-5.70) 3.75x10^6/uL (4.30-5.70) Hemoglobin 12.6g/dL (13.0-17.5) 12.4g/dL (13.0-17.5) Hematocrit 38.8% (39.0-53.0) 38.1% (39.0-53.0) Mean Corpuscular Volume 102fL (79-100) 102fL (79-100) Mean Corpuscular Hemoglobin 33pg (25-35) 33pg (25-35) Mean Corpuscular Hemoglobin Concent 33g/dL (31-37) 33g/dL (31-37) Red Cell Distribution Width 13.7% (11.5-14.5) 13.7% (11.5-14.5) Platelet Count 204x10^3/uL (140-400) 169x10^3/uL (140-400) Neutrophils (%) (Auto) 72% (31-73) 70% (31-73) Lymphocytes (%) (Auto) 13% (24-48) 17% (24-48) Monocytes (%) (Auto) 13% (0-9) 10% (0-9) Eosinophils (%) (Auto) 2% (0-3) 2% (0-3) Basophils (%) (Auto) 0% (0-3) 0% (0-3) Neutrophils # (Auto) 7.5x10^3uL (1.8-7.7) 6.2x10^3uL (1.8-7.7) Lymphocytes # (Auto) 1.4x10^3/uL (1.0-4.8) 1.5x10^3/uL (1.0-4.8) Monocytes # (Auto) 1.3x10^3/uL (0.0-1.1) 0.9x10^3/uL (0.0-1.1) Eosinophils # (Auto) 0.2x10^3/uL (0.0-0.7) 0.2x10^3/uL (0.0-0.7) Basophils # (Auto) 0.0x10^3/uL (0.0-0.2) 0.0x10^3/uL (0.0-0.2) Prothrombin Time 13.1SEC (11.7-14.0) Prothromb Time International Ratio 1.1 (0.8-1.1) Activated Partial Thromboplast Time 24SEC (24-38) Urine Collection Type Unknown Urine Color Yellow Urine Clarity Clear Urine pH 5.0 Urine Specific [place] 1.015 Urine Protein Negativemg/dL (NEG-TRACE) Urine Glucose (UA) Negativemg/dL (NEG) Urine Ketones (Stick) Negativemg/dL (NEG) Urine Blood Negative (NEG) Urine Nitrite Negative (NEG) Urine Bilirubin Negative (NEG) Urine Urobilinogen Dipstick 1.0mg/dL (0.2 mg/dL) Urine Leukocyte Esterase Trace (NEG) Urine RBC 0/HPF (0-2) Urine WBC 1-4/HPF (0-4) Urine Squamous Epithelial Cells Few/LPF Urine Bacteria 0/HPF (0-FEW) Urine Mucus Mod/LPF Sodium Level 147mmol/L (136-145) 145mmol/L (136-145) Potassium Level 4.4mmol/L (3.5-5.1) 3.9mmol/L (3.5-5.1) Chloride Level 105mmol/L (98-107) 105mmol/L (98-107) Carbon Dioxide Level 36mmol/L (21-32) 34mmol/L (21-32) Anion Gap 6 (6-14) 6 (6-14) Blood Urea Nitrogen 16mg/dL (8-26) 15mg/dL (8-26) Creatinine 1.0mg/dL (0.7-1.3) 0.9mg/dL (0.7-1.3) Estimated GFR (Cockcroft-Gault) 71.9 81.2 Glucose Level 100mg/dL (70-99) 118mg/dL (70-99) Calcium Level 9.3mg/dL (8.5-10.1) 9.2mg/dL (8.5-10.1) Creatine Kinase 365U/L (39-308) Creatine Kinase MB (Mass) 3.3ng/mL (0.0-3.6) Creatine Kinase MB Relative Index 0.9% (0-4) Troponin I Quantitative 0.082ng/mL (0.000-0.055) 0.077ng/mL (0.000-0.055) 0.062ng/mL (0.000-0.055) Vitamin B12 Level 323pg/mL (247-911) Thyroid Stimulating Hormone (TSH) 0.924uIU/mL (0.358-3.74) Review of Systems Review of Systems no fever, chills, sob or chest pain Assessment and Plan Assessmemt and Plan Problems Medical Problems: (1) Altered mental status Status: Acute (2) Elevated troponin Status: Acute Problems: Comment Review of Relevant I have reviewed the following items kellen (where applicable) has been applied. Labs Laboratory Tests Test 3/20/17 19:38 10/08/16 01:50 10/08/16 08:00 White Blood Count 10.3x10^3/uL (4.0-11.0) 8.8x10^3/uL (4.0-11.0) Red Blood Count 3.81x10^6/uL (4.30-5.70) 3.75x10^6/uL (4.30-5.70) Hemoglobin 12.6g/dL (13.0-17.5) 12.4g/dL (13.0-17.5) Hematocrit 38.8% (39.0-53.0) 38.1% (39.0-53.0) Mean Corpuscular Volume 102fL (79-100) 102fL (79-100) Mean Corpuscular Hemoglobin 33pg (25-35) 33pg (25-35) Mean Corpuscular Hemoglobin Concent 33g/dL (31-37) 33g/dL (31-37) Red Cell Distribution Width 13.7% (11.5-14.5) 13.7% (11.5-14.5) Platelet Count 204x10^3/uL (140-400) 169x10^3/uL (140-400) Neutrophils (%) (Auto) 72% (31-73) 70% (31-73) Lymphocytes (%) (Auto) 13% (24-48) 17% (24-48) Monocytes (%) (Auto) 13% (0-9) 10% (0-9) Eosinophils (%) (Auto) 2% (0-3) 2% (0-3) Basophils (%) (Auto) 0% (0-3) 0% (0-3) Neutrophils # (Auto) 7.5x10^3uL (1.8-7.7) 6.2x10^3uL (1.8-7.7) Lymphocytes # (Auto) 1.4x10^3/uL (1.0-4.8) 1.5x10^3/uL (1.0-4.8) Monocytes # (Auto) 1.3x10^3/uL (0.0-1.1) 0.9x10^3/uL (0.0-1.1) Eosinophils # (Auto) 0.2x10^3/uL (0.0-0.7) 0.2x10^3/uL (0.0-0.7) Basophils # (Auto) 0.0x10^3/uL (0.0-0.2) 0.0x10^3/uL (0.0-0.2) Prothrombin Time 13.1SEC (11.7-14.0) Prothromb Time International Ratio 1.1 (0.8-1.1) Activated Partial Thromboplast Time 24SEC (24-38) Urine Collection Type Unknown Urine Color Yellow Urine Clarity Clear Urine pH 5.0 Urine Specific [place] 1.015 Urine Protein Negativemg/dL (NEG-TRACE) Urine Glucose (UA) Negativemg/dL (NEG) Urine Ketones (Stick) Negativemg/dL (NEG) Urine Blood Negative (NEG) Urine Nitrite Negative (NEG) Urine Bilirubin Negative (NEG) Urine Urobilinogen Dipstick 1.0mg/dL (0.2 mg/dL) Urine Leukocyte Esterase Trace (NEG) Urine RBC 0/HPF (0-2) Urine WBC 1-4/HPF (0-4) Urine Squamous Epithelial Cells Few/LPF Urine Bacteria 0/HPF (0-FEW) Urine Mucus Mod/LPF Sodium Level 147mmol/L (136-145) 145mmol/L (136-145) Potassium Level 4.4mmol/L (3.5-5.1) 3.9mmol/L (3.5-5.1) Chloride Level 105mmol/L (98-107) 105mmol/L (98-107) Carbon Dioxide Level 36mmol/L (21-32) 34mmol/L (21-32) Anion Gap 6 (6-14) 6 (6-14) Blood Urea Nitrogen 16mg/dL (8-26) 15mg/dL (8-26) Creatinine 1.0mg/dL (0.7-1.3) 0.9mg/dL (0.7-1.3) Estimated GFR (Cockcroft-Gault) 71.9 81.2 Glucose Level 100mg/dL (70-99) 118mg/dL (70-99) Calcium Level 9.3mg/dL (8.5-10.1) 9.2mg/dL (8.5-10.1) Creatine Kinase 365U/L (39-308) Creatine Kinase MB (Mass) 3.3ng/mL (0.0-3.6) Creatine Kinase MB Relative Index 0.9% (0-4) Troponin I Quantitative 0.082ng/mL (0.000-0.055) 0.077ng/mL (0.000-0.055) 0.062ng/mL (0.000-0.055) Vitamin B12 Level 323pg/mL (247-911) Thyroid Stimulating Hormone (TSH) 0.924uIU/mL (0.358-3.74) Laboratory Tests Test 10/07/16 19:38 10/08/16 01:50 10/08/16 08:00 White Blood Count 10.3x10^3/uL (4.0-11.0) 8.8x10^3/uL (4.0-11.0) Red Blood Count 3.81x10^6/uL (4.30-5.70) 3.75x10^6/uL (4.30-5.70) Hemoglobin 12.6g/dL (13.0-17.5) 12.4g/dL (13.0-17.5) Hematocrit 38.8% (39.0-53.0) 38.1% (39.0-53.0) Mean Corpuscular Volume 102fL (79-100) 102fL (79-100) Mean Corpuscular Hemoglobin 33pg (25-35) 33pg (25-35) Mean Corpuscular Hemoglobin Concent 33g/dL (31-37) 33g/dL (31-37) Red Cell Distribution Width 13.7% (11.5-14.5) 13.7% (11.5-14.5) Platelet Count 204x10^3/uL (140-400) 169x10^3/uL (140-400) Neutrophils (%) (Auto) 72% (31-73) 70% (31-73) Lymphocytes (%) (Auto) 13% (24-48) 17% (24-48) Monocytes (%) (Auto) 13% (0-9) 10% (0-9) Eosinophils (%) (Auto) 2% (0-3) 2% (0-3) Basophils (%) (Auto) 0% (0-3) 0% (0-3) Neutrophils # (Auto) 7.5x10^3uL (1.8-7.7) 6.2x10^3uL (1.8-7.7) Lymphocytes # (Auto) 1.4x10^3/uL (1.0-4.8) 1.5x10^3/uL (1.0-4.8) Monocytes # (Auto) 1.3x10^3/uL (0.0-1.1) 0.9x10^3/uL (0.0-1.1) Eosinophils # (Auto) 0.2x10^3/uL (0.0-0.7) 0.2x10^3/uL (0.0-0.7) Basophils # (Auto) 0.0x10^3/uL (0.0-0.2) 0.0x10^3/uL (0.0-0.2) Prothrombin Time 13.1SEC (11.7-14.0) Prothromb Time International Ratio 1.1 (0.8-1.1) Activated Partial Thromboplast Time 24SEC (24-38) Urine Collection Type Unknown Urine Color Yellow Urine Clarity Clear Urine pH 5.0 Urine Specific [place] 1.015 Urine Protein Negativemg/dL (NEG-TRACE) Urine Glucose (UA) Negativemg/dL (NEG) Urine Ketones (Stick) Negativemg/dL (NEG) Urine Blood Negative (NEG) Urine Nitrite Negative (NEG) Urine Bilirubin Negative (NEG) Urine Urobilinogen Dipstick 1.0mg/dL (0.2 mg/dL) Urine Leukocyte Esterase Trace (NEG) Urine RBC 0/HPF (0-2) Urine WBC 1-4/HPF (0-4) Urine Squamous Epithelial Cells Few/LPF Urine Bacteria 0/HPF (0-FEW) Urine Mucus Mod/LPF Sodium Level 147mmol/L (136-145) 145mmol/L (136-145) Potassium Level 4.4mmol/L (3.5-5.1) 3.9mmol/L (3.5-5.1) Chloride Level 105mmol/L (98-107) 105mmol/L (98-107) Carbon Dioxide Level 36mmol/L (21-32) 34mmol/L (21-32) Anion Gap 6 (6-14) 6 (6-14) Blood Urea Nitrogen 16mg/dL (8-26) 15mg/dL (8-26) Creatinine 1.0mg/dL (0.7-1.3) 0.9mg/dL (0.7-1.3) Estimated GFR (Cockcroft-Gault) 71.9 81.2 Glucose Level 100mg/dL (70-99) 118mg/dL (70-99) Calcium Level 9.3mg/dL (8.5-10.1) 9.2mg/dL (8.5-10.1) Creatine Kinase 365U/L (39-308) Creatine Kinase MB (Mass) 3.3ng/mL (0.0-3.6) Creatine Kinase MB Relative Index 0.9% (0-4) Troponin I Quantitative 0.082ng/mL (0.000-0.055) 0.077ng/mL (0.000-0.055) 0.062ng/mL (0.000-0.055) Vitamin B12 Level 323pg/mL (247-911) Thyroid Stimulating Hormone (TSH) 0.924uIU/mL (0.358-3.74) Medications Current Medications Ondansetron HCl (Zofran) 4 mg PRN Q8HRS PRN IV NAUSEA/VOMITING; Start 10/07/16 at 20:30; Stop 10/07/16 at 21:02; Status DC Fentanyl Citrate (Fentanyl 2ml Vial) 25 mcg PRN Q2HR PRN IV PAIN; Start at 20:30; Stop 10/08/16 at 20:29 Acetaminophen (Tylenol) 650 mg PRN Q4HRS PRN PO FEVER; Start 10/07/16 at 20:30 ; Stop 10/07/16 at 21:02; Status DC Acetaminophen (Tylenol) 650 mg PRN Q6HRS PRN PO FEVER; Start 10/07/16 at 21:00 Ondansetron HCl (Zofran) 4 mg PRN Q6HRS PRN IV NAUSEA; Start 10/07/16 at 21:00 Enoxaparin Sodium (Lovenox 100mg Syringe) 90 mg 1X ONCE SQ Last administered on 10/07/16 23:16; Start 10/07/16 at 21:30; Stop 10/07/16 at 21:31; Status DC Info (Do NOT chart on this placeholder) 1 each PRN DAILY PRN [facility] UNABLE TO RESPOND; Start 10/07/16 at 23:00; Status Cancel Pneumococcal Polyvalent Vaccine (Do NOT chart on this placeholder) 1 each PRN DAILY PRN [facility] UNABLE TO RESPOND; Start 10/07/16 at 23:00; Status Cancel Enoxaparin Sodium (Lovenox 40mg Syringe) 40 mg Q24H SQ Last administered on 12:35; Start 10/08/16 at 12:00 Donepezil HCl (Aricept) 10 mg HS PO ; Start 10/08/16 at 21:00 Furosemide (Lasix) 40 mg DAILY PO Last administered on 10/08/16 12:35; Start 10/08/16 at 12:00 Hydrocortisone Acetate (Anucort-Hc) 25 mg PRN DAILY PRN [place] RECTAL PAIN; Start 10/08/16 at 11:30 Loperamide HCl (Imodium) 2 mg PRN BID PRN PO DIARRHEA; Start 10/08/16 at 11:30 Magnesium Hydroxide (Milk Of Magnesia) 400 mg PRN DAILY PRN PO CONSTIPATION; Start 10/08/16 at 11:30 Metoprolol Tartrate (Lopressor) 25 mg DAILY PO Last administered on 10/08/16 12:35; Start 10/08/16 at 12:30 Trazodone HCl (Desyrel) 50 mg QHS PO ; Start 10/08/16 at 21:00 Triamcinolone Acetonide (Kenalog) 1 marisol PRN Q12HRS PRN TP RASH; Start 10/08/16 at 11:45 Non-Formulary Medication 1 vial Q6HRS NEB ; Start 10/08/16 at 12:00; Status UNV Albuterol Sulfate (Ventolin Neb Soln) 2.5 mg PRN Q6HRS PRN INH SHORTNESS OF BREATH; Start 10/08/16 at 11:30 Budesonide (Pulmicort) 0.5 mg RTBID NEB ; Start 10/08/16 at 20:00 Vitamin D (Vitamin D3) 1,000 unit BID PO Last administered on 10/08/16 12:35; Start 10/08/16 at 12:00 Fluticasone Propionate (Flonase) 2 spray DAILY NS ; Start 10/08/16 at 12:00 Guaifenesin (Robitussin) 200 mg PRN Q4HRS PRN PO CONGESTION; Start 10/08/16 at 12:00 Hydrocortisone (Cortaid) 1 marisol PRN DAILY PRN TP RASH; Start 10/08/16 at 12:00 Multivitamins (Thera M Plus) 1 tab QHS PO ; Start 10/08/16 at 21:00 Potassium Chloride (Klor-Con) 20 meq DAILYWBKFT PO Last administered on 12:35; Start 10/08/16 at 12:00 Artificial Tears (Artificial Tears) 1 drop BID OU ; Start 10/08/16 at 12:00 Albuterol/ Ipratropium (Duoneb) 3 ml RTQID NEB ; Start 10/08/16 at 12:00 Active Scripts Active Reported Vitamin D3 (Cholecalciferol (Vitamin D3)) 1,000 Unit Capsule 1,000 Unit PO BID Triamcinolone Acetonide 5 Gm Paste..g. 5 Gm DT PRN Q12HR PRN Trazodone Hcl 50 Mg Tablet 1 Tab PO QHS Systane Balance (Propylene Glycol) 10 Ml Drops 10 Ml OP BID Symbicort 160-4.5 Mcg Inhaler (Budesonide/Formoterol Fumarate) 10.2 Gm Hfa.aer.ad 2 Puff IH BID Spiriva (Tiotropium [place]) 18 Mcg Cap.w.dev 1 Cap IH HS Potassium Chloride 20 Meq Tablet.er 20 Meq PO DAILY Daily Value (Multivitamin) 1 Each Tablet 1 Each PO HS Milk Of Magnesia (Magnesium Hydroxide) 400 Mg/5 Ml Oral.susp 400 Mg PO PRN DAILY PRN Metoprolol Tartrate 25 Mg Tablet 1 Tab PO DAILY Imodium A-D (Loperamide HCl) 2 Mg Capsule 2 Mg PO PRN PRN Hydrocortisone (Hydrocortisone Acetate) 28 Gm Oint...g. 1 % TOP PRN PRN Hydrocortisone Acetate 25 Mg Supp.rect 1 % TOP PRN PRN Guaifenesin 400 Mg Tablet 400 Mg PO PRN Q12HR PRN Furosemide 40 Mg Tablet 1 Tab PO DAILY Flonase Allergy Relief (Fluticasone Propionate) 9.9 Ml [place].susp 2 Sprays NS DAILY Donepezil Hcl 10 Mg Tablet 10 Mg PO HS Albuterol Sulfate Neb Soln (Albuterol Sulfate) 1.25 Mg/3 Ml Vial.neb 1 Vial NEB Q6HRS Ventolin Hfa Inhaler (Albuterol Sulfate) 18 Gm Hfa.aer.ad 2 Puff INH PRN Q6HRS PRN Vitals/I & O Vital Sign - Last 24 Hours 10/07/16 10/07/16 10/07/16 10/07/16 19:26 19:44 20:14 20:44 Temp 98.6 98.6 Pulse 82 66 66 72 Resp 18 16 16 16 B/P 130/59 163/68 142/65 142/67 Pulse Ox 92 90 91 97 O2 Delivery Room Air Room Air Room Air Nasal Cannula O2 Flow Rate 2 10/07/16 10/07/16 10/07/16 10/08/16 22:00 22:49 23:36 03:30 Temp 99.0 98.1 99.0 98.1 Pulse 62 59 Resp 16 B/P 143/64 135/66 Pulse Ox 95 96 O2 Delivery Nasal Cannula Nasal Cannula Room Air Room Air O2 Flow Rate 2.0 2.0 10/08/16 10/08/16 10/08/16 10/08/16 07:00 08:00 08:00 10:57 Temp 98.0 98.0 97.9 98.0 98.0 97.9 Pulse 77 77 69 Resp 16 B/P 140/60 140/60 126/44 Pulse Ox 95 95 97 O2 Delivery Nasal Cannula Nasal Cannula Nasal Cannula Nasal Cannula O2 Flow Rate 2.0 2.0 2.0 2.0 10/08/16 12:35 Pulse 69 B/P 126/44 SERAFIN LEARY MD Oct 08, 2016 13:17
[2016-10-08 15:00] VITALS: BP 152/71
[2016-10-08] MEDS: ASPIRIN 325 MG TABLET PO SCH (15:13)
[2016-10-08] MEDS: POLYVINYL ALCOHOL 1.4% OPHTH SOLUTION 15ML BOTTLE. OU SCH ×2 (15:13→21:37)
[2016-10-08] MEDS: FLUTICASONE 50MCG/NASAL SPRAY 16GM BOTTLE. NS SCH (15:14)
[2016-10-08] MEDS: IPRATRPIUM/ALBUTEROL 0.5/2.5MG 3 ML NEBU. NEB SCH ×2 (15:23→20:00)
--- NOTE | 2016-10-08 15:42 | CARD ---
APPROVED REPORT EXAM: Two-dimensional and M-mode echocardiogram with Doppler and color Doppler. Other Information Quality : AverageHR: 54bpm Rhythm : Bradycardia INDICATION Elevated troponin, AMS 2D DIMENSIONS RVDd2.1 (2.9-3.5cm)Left Atrium(2D)3.9 (1.6-4.0cm) IVSd1.0 (0.7-1.1cm)Aortic Root(2D)2.7 (2.0-3.7cm) LVDd4.5 (3.9-5.9cm)LVOT Diameter2.2 (1.8-2.4cm) PWd1.0 (0.7-1.1cm)LVDs3.2 (2.5-4.0cm) FS (%) 29.9 %SV53.2 ml LVEF(%)57.2 (>50%) Aortic Valve AoV Peak Jose.112.9cm/sAoV VTI29.2cm AO Peak GR.5.1mmHgLVOT Peak Jose.79.8cm/s AO Mean GR.3mmHgAVA (VMAX)2.61cm2 Mitral Valve MV E Hjnruoon56.1cm/sMV E Peak Gr.5mmHg MV DECEL [id number] A Yliyeowu352.8cm/s MV E Mean Gr.2mmHgE/A Ratio0.8 MV A [id number] Planimetry3.04cm2 Pulmonary Valve PV Peak Nfgrlesq30.0cm/s Pulmonary Vein S1 Podhmejj67.2cm/sD2 Qxqrqrim60.3cm/s PVa [id number] LEFT VENTRICLE The left ventricle is normal size. There is normal left ventricular wall thickness. The left ventricu lar systolic function is normal and the ejection fraction is within normal range. The Ejection Fracti on is 55-60%. No gross wall motion abnormalities. Transmitral Doppler flow pattern is Grade I-abnorma l relaxation pattern. RIGHT VENTRICLE The right ventricle is normal size. There is normal right ventricular wall thickness. The right ventr icular systolic function is normal. ATRIA The left atrium size is normal. The right atrium size is normal. The interatrial septum is intact wit h no evidence for an atrial septal defect or patent foramen ovale as noted on 2-D or Doppler imaging. AORTIC VALVE The aortic valve is mildly sclerotic. The aortic valve is trileaflet. Doppler and Color Flow revealed no significant aortic regurgitation. There is no significant aortic valvular stenosis. MITRAL VALVE The mitral valve leaflets are thickened. There is no evidence of mitral valve prolapse. There is no m itral valve stenosis. Doppler and Color Flow revealed no mitral valve regurgitation noted. TRICUSPID VALVE The tricuspid valve is normal in structure and function. Doppler and Color Flow revealed no tricuspid valve regurgitation noted. PULMONIC VALVE Doppler and Color Flow revealed no pulmonic valvular regurgitation. There is no pulmonic valvular marlene nosis. GREAT VESSELS The aortic root is normal in size. The ascending aorta is normal in size. The IVC is normal in size a nd collapses >50% with inspiration. PERICARDIAL EFFUSION There is no pleural effusion. There is no evidence of significant pericardial effusion. Critical Notification Critical Value: No <Conclusion> The left ventricular systolic function is normal and the ejection fraction is within normal range. Th e Ejection Fraction is 55-60%. No gross wall motion abnormalities.
--- NOTE | 2016-10-08 16:57 | RAD ---
Carotid ultrasound, 10/08/2016: History: Stroke Duplex evaluation of the carotid arteries in the neck was performed including grayscale, color-flow and spectral Doppler analysis. There are moderate scattered plaques in the common carotid arteries and at both carotid bifurcations. The Doppler data obtained from the bifurcations reveals no significant focal velocity acceleration in the internal carotid arteries to suggest high-grade stenosis. The peak systolic velocity in the right internal carotid artery is 83 cm/s and in the left internal carotid artery is 61 cm/s. There is a mild velocity acceleration in the left external carotid artery up to 136 cm percent. Antegrade flow is present in both vertebral arteries in the neck. IMPRESSION: Moderate atherosclerotic plaquing at both carotid bifurcations with underlying luminal narrowing of the internal carotid arteries in the 0-50% diameter range bilaterally. Note: Stenosis calculations for CT, MRA and conventional angiography are based upon determination of the distal ICA diameter in accordance with the NASCET methodology. Stenosis calculations for Doppler studies are derived from validated velocity criteria which are known to correlate with NASCET methodology of determining stenosis.
[2016-10-08] MEDS: BUDESONIDE 0.5 MG/2 ML NEBU NEB SCH (20:00)
[2016-10-08] MEDS: traZODone 50 MG TABLET. PO SCH (21:38)
[2016-10-08] MEDS: DONEPEZIL HCL 10 MG TABLET. PO SCH (21:38)
[2016-10-08] MEDS: MULTIVITAMIN with MINERAL TABLET. PO SCH (21:38)
[2016-10-08 23:47] VITALS: BP 119/59
[2016-10-09 03:19] VITALS: BP 107/57
[2016-10-09 05:01] LABS: CHOLESTEROL/HDL RATIO 4.5
[2016-10-09 07:00] VITALS: BP 103/53
[2016-10-09] MEDS: IPRATRPIUM/ALBUTEROL 0.5/2.5MG 3 ML NEBU. NEB SCH ×4 (07:20→20:32)
[2016-10-09] MEDS: BUDESONIDE 0.5 MG/2 ML NEBU NEB SCH ×2 (07:20→20:32)
[2016-10-09] MEDS: FUROSEMIDE 40 MG TABLET PO SCH (08:31)
[2016-10-09] MEDS: ASPIRIN 325 MG TABLET PO SCH (08:31)
[2016-10-09] MEDS: POTASSIUM CHLORIDE 20 MEQ TABLET.ER. PO SCH (08:32)
[2016-10-09] MEDS: CHOLECALCIFEROL (VITAMIN D3) 1,000 UNIT TABLET PO SCH ×2 (08:32→21:15)
[2016-10-09] MEDS: FLUTICASONE 50MCG/NASAL SPRAY 16GM BOTTLE. NS SCH (08:33)
[2016-10-09] MEDS: POLYVINYL ALCOHOL 1.4% OPHTH SOLUTION 15ML BOTTLE. OU SCH ×2 (08:33→21:15)
[2016-10-09] MEDS: METOPROLOL TART IMMED RELEASE 25 MG TABLET PO SCH (08:34)
[2016-10-09 11:00] VITALS: BP 105/52
--- NOTE | 2016-10-09 12:33 | PDOC ---
PROGRESS NOTES Assessment Problems Medical Problems: (1) Altered mental status Status: Acute (2) Elevated troponin Status: Acute Incidental finding of small stroke Alzheimer's dementia Plan As I documented in my note addendum yesterday, the daughter, durable power of acrobatic rigger, did not want any type of aggressive treatment or workup, but he did undergo the echocardiogram and Carotid Doppler's, both negative. No purpose of continued hospital stay here. Subjective No complaints Objective Vital Signs Date Time Temp Pulse Resp B/P Pulse Ox O2 Delivery O2 Flow Rate FiO2 10/09/16 11:10 Nasal Cannula 2.0 10/09/16 11:00 98.4 57 18 105/52 92 98.4 Intake and Output 10/09/16 07:00 Intake Total 750 ml Balance 750 ml Intake Oral 750 ml # Voids 11 # Bowel Movements 1 PHYSICAL EXAM Alert. Oriented only to person. PERRL. EOMI. CN: no focal findings. Muscle tone: normal. Muscle strength: 4/5 DTR: 1+ Plantar reflex: flexor Gait: not examined in bed. Sensory exam: no abnormal findings. No cerebellar signs elicited. Review of Relevant I have reviewed the following items kellen (where applicable) has been applied. Labs Laboratory Tests Test 10/07/16 19:38 10/07/16 22:30 10/08/16 01:50 10/08/16 08:00 White Blood Count 10.3x10^3/uL (4.0-11.0) 8.8x10^3/uL (4.0-11.0) Red Blood Count 3.81x10^6/uL (4.30-5.70) 3.75x10^6/uL (4.30-5.70) Hemoglobin 12.6g/dL (13.0-17.5) 12.4g/dL (13.0-17.5) Hematocrit 38.8% (39.0-53.0) 38.1% (39.0-53.0) Mean Corpuscular Volume 102fL (79-100) 102fL (79-100) Mean Corpuscular Hemoglobin 33pg (25-35) 33pg (25-35) Mean Corpuscular Hemoglobin Concent 33g/dL (31-37) 33g/dL (31-37) Red Cell Distribution Width 13.7% (11.5-14.5) 13.7% (11.5-14.5) Platelet Count 204x10^3/uL (140-400) 169x10^3/uL (140-400) Neutrophils (%) (Auto) 72% (31-73) 70% (31-73) Lymphocytes (%) (Auto) 13% (24-48) 17% (24-48) Monocytes (%) (Auto) 13% (0-9) 10% (0-9) Eosinophils (%) (Auto) 2% (0-3) 2% (0-3) Basophils (%) (Auto) 0% (0-3) 0% (0-3) Neutrophils # (Auto) 7.5x10^3uL (1.8-7.7) 6.2x10^3uL (1.8-7.7) Lymphocytes # (Auto) 1.4x10^3/uL (1.0-4.8) 1.5x10^3/uL (1.0-4.8) Monocytes # (Auto) 1.3x10^3/uL (0.0-1.1) 0.9x10^3/uL (0.0-1.1) Eosinophils # (Auto) 0.2x10^3/uL (0.0-0.7) 0.2x10^3/uL (0.0-0.7) Basophils # (Auto) 0.0x10^3/uL (0.0-0.2) 0.0x10^3/uL (0.0-0.2) Prothrombin Time 13.1SEC (11.7-14.0) Prothromb Time International Ratio 1.1 (0.8-1.1) Activated Partial Thromboplast Time 24SEC (24-38) Urine Collection Type Unknown Urine Color Yellow Urine Clarity Clear Urine pH 5.0 Urine Specific [place] 1.015 Urine Protein Negativemg/dL (NEG-TRACE) Urine Glucose (UA) Negativemg/dL (NEG) Urine Ketones (Stick) Negativemg/dL (NEG) Urine Blood Negative (NEG) Urine Nitrite Negative (NEG) Urine Bilirubin Negative (NEG) Urine Urobilinogen Dipstick 1.0mg/dL (0.2 mg/dL) Urine Leukocyte Esterase Trace (NEG) Urine RBC 0/HPF (0-2) Urine WBC 1-4/HPF (0-4) Urine Squamous Epithelial Cells Few/LPF Urine Bacteria 0/HPF (0-FEW) Urine Mucus Mod/LPF Sodium Level 147mmol/L (136-145) 145mmol/L (136-145) Potassium Level 4.4mmol/L (3.5-5.1) 3.9mmol/L (3.5-5.1) Chloride Level 105mmol/L (98-107) 105mmol/L (98-107) Carbon Dioxide Level 36mmol/L (21-32) 34mmol/L (21-32) Anion Gap 6 (6-14) 6 (6-14) Blood Urea Nitrogen 16mg/dL (8-26) 15mg/dL (8-26) Creatinine 1.0mg/dL (0.7-1.3) 0.9mg/dL (0.7-1.3) Estimated GFR (Cockcroft-Gault) 71.9 81.2 Glucose Level 100mg/dL (70-99) 118mg/dL (70-99) Calcium Level 9.3mg/dL (8.5-10.1) 9.2mg/dL (8.5-10.1) Creatine Kinase 365U/L (39-308) Creatine Kinase MB (Mass) 3.3ng/mL (0.0-3.6) Creatine Kinase MB Relative Index 0.9% (0-4) Troponin I Quantitative 0.082ng/mL (0.000-0.055) 0.077ng/mL (0.000-0.055) 0.062ng/mL (0.000-0.055) Nasal Screen MRSA (PCR) Negative (Negative) Vitamin B12 Level 323pg/mL (247-911) Thyroid Stimulating Hormone (TSH) 0.924uIU/mL (0.358-3.74) Test 10/09/16 04:03 Triglycerides Level 108mg/dL (0-150) Cholesterol Level 204mg/dL (0-200) LDL Cholesterol, Calculated 137mg/dL (0-100) VLDL Cholesterol, Calculated 22mg/dL (0-40) HDL Cholesterol 45mg/dL (40-60) Cholesterol/HDL Ratio 4.5 Laboratory Tests Test 10/09/16 04:03 Triglycerides Level 108mg/dL (0-150) Cholesterol Level 204mg/dL (0-200) LDL Cholesterol, Calculated 137mg/dL (0-100) VLDL Cholesterol, Calculated 22mg/dL (0-40) HDL Cholesterol 45mg/dL (40-60) Cholesterol/HDL Ratio 4.5 Microbiology 10/07/16 Urine Culture - Preliminary, Resulted 10/07/16 Urine Culture Result 1 (JUHI) - Preliminary, Resulted Medications Current Medications Ondansetron HCl (Zofran) 4 mg PRN Q8HRS PRN IV NAUSEA/VOMITING; Start 10/07/16 at 20:30; Stop 10/07/16 at 21:02; Status DC Fentanyl Citrate (Fentanyl 2ml Vial) 25 mcg PRN Q2HR PRN IV PAIN; Start at 20:30; Stop 10/08/16 at 20:29; Status DC Acetaminophen (Tylenol) 650 mg PRN Q4HRS PRN PO FEVER; Start 10/07/16 at 20:30 ; Stop 10/07/16 at 21:02; Status DC Acetaminophen (Tylenol) 650 mg PRN Q6HRS PRN PO FEVER; Start 10/07/16 at 21:00 Ondansetron HCl (Zofran) 4 mg PRN Q6HRS PRN IV NAUSEA; Start 10/07/16 at 21:00 Enoxaparin Sodium (Lovenox 100mg Syringe) 90 mg 1X ONCE SQ Last administered on 10/07/16 23:16; Start 10/07/16 at 21:30; Stop 10/07/16 at 21:31; Status DC Info (Do NOT chart on this placeholder) 1 each PRN DAILY PRN [facility] UNABLE TO RESPOND; Start 10/07/16 at 23:00; Status Cancel Pneumococcal Polyvalent Vaccine (Do NOT chart on this placeholder) 1 each PRN DAILY PRN [facility] UNABLE TO RESPOND; Start 10/07/16 at 23:00; Status Cancel Enoxaparin Sodium (Lovenox 40mg Syringe) 40 mg Q24H SQ Last administered on 12:35; Start 10/08/16 at 12:00 Donepezil HCl (Aricept) 10 mg HS PO Last administered on 3/21/17at 21:38; Start 10/08/16 at 21:00 Furosemide (Lasix) 40 mg DAILY PO Last administered on 10/09/16 08:31; Start 10/08/16 at 12:00 Hydrocortisone Acetate (Anucort-Hc) 25 mg PRN DAILY PRN IN RECTAL PAIN; Start 10/08/16 at 11:30 Loperamide HCl (Imodium) 2 mg PRN BID PRN PO DIARRHEA; Start 10/08/16 at 11:30 Magnesium Hydroxide (Milk Of Magnesia) 400 mg PRN DAILY PRN PO CONSTIPATION; Start 10/08/16 at 11:30 Metoprolol Tartrate (Lopressor) 25 mg DAILY PO Last administered on 10/08/16 12:35; Start 10/08/16 at 12:30 Trazodone HCl (Desyrel) 50 mg QHS PO Last administered on 10/08/16 21:38; Start 10/08/16 at 21:00 Triamcinolone Acetonide (Kenalog) 1 marisol PRN Q12HRS PRN TP RASH; Start 10/08/16 at 11:45 Non-Formulary Medication 1 vial Q6HRS NEB ; Start 10/08/16 at 12:00; Status UNV Albuterol Sulfate (Ventolin Neb Soln) 2.5 mg PRN Q6HRS PRN INH SHORTNESS OF BREATH; Start 10/08/16 at 11:30 Budesonide (Pulmicort) 0.5 mg RTBID NEB Last administered on 10/09/16 07:20; Start 10/08/16 at 20:00 Vitamin D (Vitamin D3) 1,000 unit BID PO Last administered on 10/09/16 08:32; Start 10/08/16 at 12:00 Fluticasone Propionate (Flonase) 2 spray DAILY NS Last administered on 08:33; Start 10/08/16 at 12:00 Guaifenesin (Robitussin) 200 mg PRN Q4HRS PRN PO CONGESTION; Start 10/08/16 at 12:00 Hydrocortisone (Cortaid) 1 marisol PRN DAILY PRN TP RASH; Start 10/08/16 at 12:00; Stop 10/08/16 at 13:14; Status DC Multivitamins (Thera M Plus) 1 tab QHS PO Last administered on 10/08/16 21:38 ; Start 10/08/16 at 21:00 Potassium Chloride (Klor-Con) 20 meq DAILYWBKFT PO Last administered on 08:32; Start 10/08/16 at 12:00 Artificial Tears (Artificial Tears) 1 drop BID OU Last administered on 08:33; Start 10/08/16 at 12:00 Albuterol/ Ipratropium (Duoneb) 3 ml RTQID NEB Last administered on 10/09/16 11:09; Start 10/08/16 at 12:00 Hydrocortisone (Cortaid) 1 marisol PRN DAILY PRN TP RASH; Start 10/08/16 at 13:14 Aspirin (Chelsey Aspirin) 325 mg DAILYWBKFT PO Last administered on 10/09/16 08: 31; Start 10/08/16 at 14:00 Active Scripts Active Reported Vitamin D3 (Cholecalciferol (Vitamin D3)) 1,000 Unit Capsule 1,000 Unit PO BID Triamcinolone Acetonide 5 Gm Paste..g. 5 Gm DT PRN Q12HR PRN Trazodone Hcl 50 Mg Tablet 1 Tab PO QHS Systane Balance (Propylene Glycol) 10 Ml Drops 10 Ml OP BID Symbicort 160-4.5 Mcg Inhaler (Budesonide/Formoterol Fumarate) 10.2 Gm Hfa.aer.ad 2 Puff IH BID Spiriva (Tiotropium [place]) 18 Mcg Cap.w.dev 1 Cap IH HS Potassium Chloride 20 Meq Tablet.er 20 Meq PO DAILY Daily Value (Multivitamin) 1 Each Tablet 1 Each PO HS Milk Of Magnesia (Magnesium Hydroxide) 400 Mg/5 Ml Oral.susp 400 Mg PO PRN DAILY PRN Metoprolol Tartrate 25 Mg Tablet 1 Tab PO DAILY Imodium A-D (Loperamide HCl) 2 Mg Capsule 2 Mg PO PRN PRN Hydrocortisone (Hydrocortisone Acetate) 28 Gm Oint...g. 1 % TOP PRN PRN Hydrocortisone Acetate 25 Mg Supp.rect 1 % TOP PRN PRN Guaifenesin 400 Mg Tablet 400 Mg PO PRN Q12HR PRN Furosemide 40 Mg Tablet 1 Tab PO DAILY Flonase Allergy Relief (Fluticasone Propionate) 9.9 Ml [place].susp 2 Sprays NS DAILY Donepezil Hcl 10 Mg Tablet 10 Mg PO HS Albuterol Sulfate Neb Soln (Albuterol Sulfate) 1.25 Mg/3 Ml Vial.neb 1 Vial NEB Q6HRS Ventolin Hfa Inhaler (Albuterol Sulfate) 18 Gm Hfa.aer.ad 2 Puff INH PRN Q6HRS PRN Vitals/I & O Vital Sign - Last 24 Hours 10/08/16 10/08/16 10/08/16 10/08/16 12:35 15:00 15:25 19:00 Temp 97.9 97.9 Pulse 69 66 Resp 18 B/P 126/44 152/71 Pulse Ox 96 97 O2 Delivery Room Air Nasal Cannula Nasal Cannula O2 Flow Rate 2.0 2.0 10/08/16 10/08/16 10/08/16 10/08/16 20:00 20:01 20:11 23:47 Temp 97.8 97.8 Pulse 59 Resp 20 B/P 119/59 Pulse Ox 97 O2 Delivery Nasal Cannula Nasal Cannula Nasal Cannula Nasal Cannula O2 Flow Rate 2.0 2.0 2.0 2.0 10/09/16 10/09/16 10/09/16 10/09/16 03:19 07:00 07:21 08:00 Temp 97.7 98.1 97.7 98.1 Pulse 63 66 Resp 20 18 B/P 107/57 103/53 Pulse Ox 97 97 87 O2 Delivery Nasal Cannula Nasal Cannula Nasal Cannula Nasal Cannula O2 Flow Rate 2.0 2.0 2.0 2.0 10/09/16 10/09/16 10/09/16 08:34 11:00 11:10 Temp 98.4 98.4 Pulse 66 57 Resp 18 B/P 103/53 105/52 Pulse Ox 92 O2 Delivery Nasal Cannula Nasal Cannula O2 Flow Rate 2.0 2.0 Intake and Output 10/08/16 10/08/16 10/09/16 15:00 23:00 07:00 Intake Total 100 ml 650 ml Balance 100 ml 650 ml Images MRI brain: There appears to be a small area of acute ischemia/infarction involving the left occipital lobe as outlined above. There is no significant surrounding edema or associated mass effect. The patient's nurse was notified of this finding. Echocardiogram: negative Carotid Dopplers: negative MARÍA GALDAMEZ MD Oct 09, 2016 12:33
[2016-10-09] MEDS: ENOXAPARIN 40 MG/0.4 ML SYRINGE. SQ SCH (12:36)
--- NOTE | 2016-10-09 12:42 | PDOC3 ---
Discharge Summary [facility] Date of Admission: Oct 07, 2016 Discharge Date: Oct 09, 2016 Admitting Diagnosis 1. AMS, 2/2 acute left occipital stroke 2. high troponin, not clear etiology , need to rule out NSTEMI 3. H/O chf, NO DEtails 4. copd, stable 5. 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 htn plan: 1. card, neuro consulted 2. check tsh, vitb12, CYCLE CE lovenox 90mg sc x1 slightly high CK, add ckmb, neg 3. cont home meds PTOT Brain MRI + for stroke add Echo, carotid US. add asa, check lipid panel History of Present Illness History of Present Illness pt looks better today, talking, moving bl exts likely his baseline ,very demented tho, aaox1 to person, knows in hosp cannot tell the name or year Vitals Vitals Vital Signs Date Time Temp Pulse Resp B/P Pulse Ox O2 Delivery O2 Flow Rate FiO2 10/08/16 12:35 69 126/44 10/08/16 10:57 97.9 16 97 Nasal Cannula 2.0 97.9 Physical Exam Labs Problems: Final Diagnosis Problems Medical Problems: (1) Altered mental status Status: Acute (2) Elevated troponin Status: Acute Brief Hospital Course Patient is a 80 year old male, dementia, [facility], who presents by EMS for altered mental status. Pt is a very poor historian, closing his eyes when i talked to him in ER, answer my questions by only "feels good", cannot tell me where he is or what happened. As per ERP, Per RN phone report from [place], it was noted when he was at dinner that he had slurred speech and could not sit up on his own. This is abnormal for him. Unknown last normal time. The patient only complains of general body tingling sensation. troponin was slightly high in ER, Echo normal. head CT neg. MRI showed a small left occipital stroke, likely not the reason for pt's symtome. dc home with asa, lipitor. carotid US neg. dc time 35min. General: Alert, Cooperative, No acute distress , aaox 1, to person Heart: Regular rate, Normal S1, Normal S2, No murmurs, Other (no carotid bruits ) Abdomen: Normal bowel sounds, Soft Extremities: No edema, Normal pulses Skin: No rashes Problems: Disposition snf CONDITION AT DISCHARGE: Improved Diet regular Scheduled Albuterol Sulfate (Albuterol Sulfate Neb Soln) 1 VIAL NEB Q6HRS (Reported) Budesonide/Formoterol Fumarate (Symbicort 160-4.5 Mcg Inhaler) 2 PUFF IH BID ( Reported) Cholecalciferol (Vitamin D3) (Vitamin D3) 1,000 UNIT PO BID (Reported) Donepezil Hcl (Donepezil Hcl) 10 MG PO HS (Reported) Fluticasone Propionate (Flonase Allergy Relief) 2 SPRAYS NS DAILY (Reported) Furosemide (Furosemide) 1 TAB PO DAILY (Reported) Metoprolol Tartrate (Metoprolol Tartrate) 1 TAB PO DAILY (Reported) Multivitamin (Daily Value) 1 EACH PO HS (Reported) Potassium Chloride (Potassium Chloride) 20 MEQ PO DAILY (Reported) Propylene Glycol (Systane Balance) 10 ML OP BID (Reported) Tiotropium [place] (Spiriva) 1 CAP IH HS (Reported) Trazodone Hcl (Trazodone Hcl) 1 TAB PO QHS (Reported) Scheduled PRN Albuterol Sulfate (Ventolin Hfa Inhaler) 2 PUFF INH PRN Q6HRS PRN PRN SHORTNESS OF BREATH (Reported) Guaifenesin (Guaifenesin) 400 MG PO PRN Q12HR PRN PRN CONGESTION (Reported) Hydrocortisone Acetate (Hydrocortisone Acetate) 1 % TOP PRN PRN PRN RASH ( Reported) Hydrocortisone Acetate (Hydrocortisone) 1 % TOP PRN PRN PRN clarence (Reported) Loperamide HCl (Imodium A-D) 2 MG PO PRN PRN PRN DIARRHEA (Reported) Magnesium Hydroxide (Milk Of Magnesia) 400 MG PO PRN DAILY PRN PRN CONSTIPATION (Reported) Triamcinolone Acetonide (Triamcinolone Acetonide) 5 GM DT PRN Q12HR PRN PRN RASH (Reported) Follow Up pcp in 2 weeks SERAFIN LEARY MD Oct 09, 2016 12:42
[2016-10-09] MEDS ORDERED: ATOR40TA59 PO (12:45)
[2016-10-09] MEDS ORDERED: ASPI81TA9 PO (12:45)
[2016-10-09 15:00] VITALS: BP 109/57
[2016-10-09 19:24] VITALS: BP 121/59
[2016-10-09] MEDS ORDERED: ATORVASTATIN CALCIUM 40 MG TABLET. PO SCH (21:00)
[2016-10-09] MEDS: DONEPEZIL HCL 10 MG TABLET. PO SCH (21:15)
[2016-10-09] MEDS: traZODone 50 MG TABLET. PO SCH (21:15)
[2016-10-09] MEDS: MULTIVITAMIN with MINERAL TABLET. PO SCH (21:15)
[2016-10-09 22:32] VITALS: BP 113/45
[2016-10-10 02:14] VITALS: BP 116/56
[2016-10-10 07:00] VITALS: BP 118/63
[2016-10-10] MEDS ORDERED: ASPIRIN ENTERIC COATED 81 MG TABLET.DR. PO SCH (08:00)
[2016-10-10] MEDS: BUDESONIDE 0.5 MG/2 ML NEBU NEB SCH (08:03)
[2016-10-10] MEDS: IPRATRPIUM/ALBUTEROL 0.5/2.5MG 3 ML NEBU. NEB SCH (08:03)
[2016-10-10 08:34] VITALS: BP 118/63
[2016-10-10] MEDS: FLUTICASONE 50MCG/NASAL SPRAY 16GM BOTTLE. NS SCH (08:34)
[2016-10-10] MEDS: METOPROLOL TART IMMED RELEASE 25 MG TABLET PO SCH (08:34)
[2016-10-10] MEDS: CHOLECALCIFEROL (VITAMIN D3) 1,000 UNIT TABLET PO SCH (08:34)
[2016-10-10] MEDS: FUROSEMIDE 40 MG TABLET PO SCH (08:34)
[2016-10-10] MEDS: POLYVINYL ALCOHOL 1.4% OPHTH SOLUTION 15ML BOTTLE. OU SCH (08:34)
[2016-10-10] MEDS: POTASSIUM CHLORIDE 20 MEQ TABLET.ER. PO SCH (08:34)
--- NOTE | 2016-10-10 11:24 | PDOC ---
PROGRESS NOTES Assessment Problems Medical Problems: (1) Altered mental status Status: Acute (2) Elevated troponin Status: Acute Incidental finding of small stroke Alzheimer's dementia Plan Agree with discharge Follow-up with neurology as needed Subjective He has no complaints Objective Vital Signs Date Time Temp Pulse Resp B/P Pulse Ox O2 Delivery O2 Flow Rate FiO2 10/10/16 08:43 Nasal Cannula 2.0 10/10/16 08:34 96 118/63 10/10/16 07:00 98.3 18 95 98.3 Intake and Output 10/10/16 07:00 Intake Total 700 ml Balance 700 ml Intake Oral 700 ml # Voids 5 PHYSICAL EXAM Alert. Oriented only to person. PERRL. EOMI. CN: no focal findings. Muscle tone: normal. Muscle strength: 4/5 DTR: 1+ Plantar reflex: flexor Gait: not examined in bed. Sensory exam: no abnormal findings. No cerebellar signs elicited. Review of Relevant I have reviewed the following items kellen (where applicable) has been applied. Labs Laboratory Tests Test 10/09/16 04:03 Triglycerides Level 108mg/dL (0-150) Cholesterol Level 204mg/dL (0-200) LDL Cholesterol, Calculated 137mg/dL (0-100) VLDL Cholesterol, Calculated 22mg/dL (0-40) HDL Cholesterol 45mg/dL (40-60) Cholesterol/HDL Ratio 4.5 Microbiology 10/07/16 Urine Culture - Final, Complete 10/07/16 Urine Culture Result 1 (JUHI) - Final, Complete Medications Current Medications Ondansetron HCl (Zofran) 4 mg PRN Q8HRS PRN IV NAUSEA/VOMITING; Start 10/07/16 at 20:30; Stop 10/07/16 at 21:02; Status DC Fentanyl Citrate (Fentanyl 2ml Vial) 25 mcg PRN Q2HR PRN IV PAIN; Start at 20:30; Stop 10/08/16 at 20:29; Status DC Acetaminophen (Tylenol) 650 mg PRN Q4HRS PRN PO FEVER; Start 10/07/16 at 20:30 ; Stop 10/07/16 at 21:02; Status DC Acetaminophen (Tylenol) 650 mg PRN Q6HRS PRN PO FEVER; Start 10/07/16 at 21:00 ; Stop 10/10/16 at 10:11; Status DC Ondansetron HCl (Zofran) 4 mg PRN Q6HRS PRN IV NAUSEA; Start 10/07/16 at 21:00 ; Stop 10/10/16 at 10:11; Status DC Enoxaparin Sodium (Lovenox 100mg Syringe) 90 mg 1X ONCE SQ Last administered on 10/07/16 23:16; Start 10/07/16 at 21:30; Stop 10/07/16 at 21:31; Status DC Info (Do NOT chart on this placeholder) 1 each PRN DAILY PRN [facility] UNABLE TO RESPOND; Start 10/07/16 at 23:00; Status Cancel Pneumococcal Polyvalent Vaccine (Do NOT chart on this placeholder) 1 each PRN DAILY PRN [facility] UNABLE TO RESPOND; Start 10/07/16 at 23:00; Status Cancel Enoxaparin Sodium (Lovenox 40mg Syringe) 40 mg Q24H SQ Last administered on 12:36; Start 10/08/16 at 12:00; Stop 10/10/16 at 10:11; Status DC Donepezil HCl (Aricept) 10 mg HS PO Last administered on 10/09/16 21:15; Start 10/08/16 at 21:00; Stop 10/10/16 at 10:11; Status DC Furosemide (Lasix) 40 mg DAILY PO Last administered on 10/10/16 08:34; Start 10/08/16 at 12:00; Stop 10/10/16 at 10:11; Status DC Hydrocortisone Acetate (Anucort-Hc) 25 mg PRN DAILY PRN [place] RECTAL PAIN; Start 10/08/16 at 11:30; Stop 10/10/16 at 10:11; Status DC Loperamide HCl (Imodium) 2 mg PRN BID PRN PO DIARRHEA; Start 10/08/16 at 11:30 ; Stop 10/10/16 at 10:11; Status DC Magnesium Hydroxide (Milk Of Magnesia) 400 mg PRN DAILY PRN PO CONSTIPATION Last administered on 10/10/16 10:04; Start 10/08/16 at 11:30; Stop 10/10/16 at 10:11; Status DC Metoprolol Tartrate (Lopressor) 25 mg DAILY PO Last administered on 10/10/16 08:34; Start 10/08/16 at 12:30; Stop 10/10/16 at 10:11; Status DC Trazodone HCl (Desyrel) 50 mg QHS PO Last administered on 10/09/16 21:15; Start 10/08/16 at 21:00; Stop 10/10/16 at 10:11; Status DC Triamcinolone Acetonide (Kenalog) 1 marisol PRN Q12HRS PRN TP RASH; Start 10/08/16 at 11:45; Stop 10/10/16 at 10:11; Status DC Non-Formulary Medication 1 vial Q6HRS NEB ; Start 10/08/16 at 12:00; Status UNV Albuterol Sulfate (Ventolin Neb Soln) 2.5 mg PRN Q6HRS PRN INH SHORTNESS OF BREATH; Start 10/08/16 at 11:30; Stop 10/10/16 at 10:11; Status DC Budesonide (Pulmicort) 0.5 mg RTBID NEB Last administered on 10/10/16 08:03; Start 10/08/16 at 20:00; Stop 10/10/16 at 10:11; Status DC Vitamin D (Vitamin D3) 1,000 unit BID PO Last administered on 10/10/16 08:34; Start 10/08/16 at 12:00; Stop 10/10/16 at 10:11; Status DC Fluticasone Propionate (Flonase) 2 spray DAILY NS Last administered on 08:34; Start 10/08/16 at 12:00; Stop 10/10/16 at 10:11; Status DC Guaifenesin (Robitussin) 200 mg PRN Q4HRS PRN PO CONGESTION; Start 10/08/16 at 12:00; Stop 10/10/16 at 10:11; Status DC Hydrocortisone (Cortaid) 1 marisol PRN DAILY PRN TP RASH; Start 10/08/16 at 12:00; Stop 10/08/16 at 13:14; Status DC Multivitamins (Thera M Plus) 1 tab QHS PO Last administered on 10/09/16 21:15 ; Start 10/08/16 at 21:00; Stop 10/10/16 at 10:11; Status DC Potassium Chloride (Klor-Con) 20 meq DAILYWBKFT PO Last administered on 08:34; Start 10/08/16 at 12:00; Stop 10/10/16 at 10:11; Status DC Artificial Tears (Artificial Tears) 1 drop BID OU Last administered on 08:34; Start 10/08/16 at 12:00; Stop 10/10/16 at 10:11; Status DC Albuterol/ Ipratropium (Duoneb) 3 ml RTQID NEB Last administered on 10/10/16 08:03; Start 10/08/16 at 12:00; Stop 10/10/16 at 10:11; Status DC Hydrocortisone (Cortaid) 1 marisol PRN DAILY PRN TP RASH; Start 10/08/16 at 13:14; Stop 10/10/16 at 10:11; Status DC Aspirin (Chelsey Aspirin) 325 mg DAILYWBKFT PO Last administered on 10/09/16 08: 31; Start 10/08/16 at 14:00; Stop 10/09/16 at 12:41; Status DC Aspirin (Ecotrin) 81 mg DAILYWBKFT PO Last administered on 10/10/16 08:33; Start 10/10/16 at 08:00; Stop 10/10/16 at 10:11; Status DC Atorvastatin Calcium (Lipitor) 40 mg QHS PO Last administered on 10/09/16 21: 15; Start 10/09/16 at 21:00; Stop 10/10/16 at 10:11; Status DC Active Scripts Active Atorvastatin Calcium 40 Mg Tablet 40 Mg PO QHS 30 Days Aspirin Ec (Aspirin) 81 Mg Tablet. 81 Mg PO DAILYWBKFT 30 Days Reported Vitamin D3 (Cholecalciferol (Vitamin D3)) 1,000 Unit Capsule 1,000 Unit PO BID Triamcinolone Acetonide 5 Gm Paste..g. 5 Gm DT PRN Q12HR PRN Trazodone Hcl 50 Mg Tablet 1 Tab PO QHS Systane Balance (Propylene Glycol) 10 Ml Drops 10 Ml OP BID Symbicort 160-4.5 Mcg Inhaler (Budesonide/Formoterol Fumarate) 10.2 Gm Hfa.aer.ad 2 Puff IH BID Spiriva (Tiotropium [place]) 18 Mcg Cap.w.dev 1 Cap IH HS Potassium Chloride 20 Meq Tablet.er 20 Meq PO DAILY Daily Value (Multivitamin) 1 Each Tablet 1 Each PO HS Milk Of Magnesia (Magnesium Hydroxide) 400 Mg/5 Ml Oral.susp 400 Mg PO PRN DAILY PRN Metoprolol Tartrate 25 Mg Tablet 1 Tab PO DAILY Imodium A-D (Loperamide HCl) 2 Mg Capsule 2 Mg PO PRN PRN Hydrocortisone (Hydrocortisone Acetate) 28 Gm Oint...g. 1 % TOP PRN PRN Hydrocortisone Acetate 25 Mg Supp.rect 1 % TOP PRN PRN Guaifenesin 400 Mg Tablet 400 Mg PO PRN Q12HR PRN Furosemide 40 Mg Tablet 1 Tab PO DAILY Flonase Allergy Relief (Fluticasone Propionate) 9.9 Ml [place].susp 2 Sprays NS DAILY Donepezil Hcl 10 Mg Tablet 10 Mg PO HS Albuterol Sulfate Neb Soln (Albuterol Sulfate) 1.25 Mg/3 Ml Vial.neb 1 Vial NEB Q6HRS Ventolin Hfa Inhaler (Albuterol Sulfate) 18 Gm Hfa.aer.ad 2 Puff INH PRN Q6HRS PRN Vitals/I & O Vital Sign - Last 24 Hours 10/09/16 10/09/16 10/09/16 10/09/16 15:00 15:16 19:24 20:00 Temp 98.4 98.4 98.4 98.4 Pulse 62 79 Resp 18 18 B/P 109/57 121/59 Pulse Ox 95 95 O2 Delivery Nasal Cannula Nasal Cannula Room Air Nasal Cannula O2 Flow Rate 2.0 2.0 2.0 10/09/16 10/10/16 10/10/16 10/10/16 22:32 02:14 07:00 08:03 Temp 98.4 98.3 98.4 98.3 Pulse 80 70 96 Resp 18 18 18 B/P 113/45 116/56 118/63 Pulse Ox 95 96 95 O2 Delivery Room Air Room Air Nasal Cannula Nasal Cannula O2 Flow Rate 2.0 2.0 10/10/16 10/10/16 08:34 08:43 Pulse 96 B/P 118/63 O2 Delivery Nasal Cannula O2 Flow Rate 2.0 Intake and Output 10/09/16 10/09/16 10/10/16 15:00 23:00 07:00 Intake Total 400 ml 300 ml Balance 400 ml 300 ml MARÍA GALDAMEZ MD Oct 10, 2016 11:24
== END 2016-10-10 10:11 | DRG 66 ==
LOC: ER 18:24 → 6 SOUTH 20:10
PROVIDERS: ADMIT Internal Medicine; ATTEND Internal Medicine
DX: I63.9 Cerebral infarction, unspecified (principal); G30.9 Alzheimer's disease, unspecified; F02.80 Dementia in other diseases classified elsewhere, unspecified severity, without behavioral disturbance, psychotic disturbance, mood disturbance, and anxiety; E78.5 Hyperlipidemia, unspecified; I10 Essential (primary) hypertension; I50.9 Heart failure, unspecified; J44.9 Chronic obstructive pulmonary disease, unspecified; K21.9 Gastro-esophageal reflux disease without esophagitis; F32.9 Major depressive disorder, single episode, unspecified; M19.90 Unspecified osteoarthritis, unspecified site; Z85.51 Personal history of malignant neoplasm of bladder
CPT/HCPCS: 36415; 70450; 70551; 71010; 80048; 80061; 81001; 82550; 82553; 82607; 82947; 84443; 84484; 85027; 85610; 85730; 87086; 87641; 93005; 93306; 93880; 94640; 94760; J1650; J7620; 97110; 99285-25